=== PATIENT | male | born 1990 | race Caucasian/White ===

== ENCOUNTER 2016-07-30 07:26 | Emergency (ER) | payer MEDICAID ==
[2016-07-30] MEDS ORDERED: FAMOTIDINE 20 MG/2 ML VIAL IVP STA (08:01)
[2016-07-30] MEDS ORDERED: ACETAMINOPHEN 1,000 MG/100 ML 100 ML IV STA (08:01)
[2016-07-30] MEDS ORDERED: ONDANSETRON 4 MG/2 ML VIAL IVP STA (08:01)
[2016-07-30] MEDS ORDERED: SODIUM CHLORIDE 0.9% 1,000 ML IV ONE (08:02)
--- NOTE | 2016-07-30 08:04 | ED Physician Documentation ---
History of Present Illness - Stated complaint Stated Complaint: ABD PX/VOMITING/DIARRHEA - Chief complaint Chief Complaint: Abd Pain - Additonal information Additional information: hx from pt 25 y/o male hx PUD and crohns on sulfasalazine, bentyl and prilosec to ER with NVD (both blood tinged) and L abd pain X 2 days started after his son was sick with NVD no travel no bad food no recent ab Review of Systems Constitutional: denies: Fever, Chills Throat: denies: Sore throat Cardiac: denies: Chest pain / pressure Respiratory: denies: Dyspnea GI: reports: Abdominal Pain, Nausea, Vomiting, Diarrhea, Hematemesis, Bloody / black stool Endocrine: denies: Easy bruising / bleeding Immunocompromised: denies: Immunocompromised PD PAST MEDICAL HISTORY - Past Medical History GI: Ulcers, Crohn's disease Other Past Medical History: Crohn's Disease - Past Surgical History Past Surgical History: Yes General: Colonoscopy HEENT: Tonsil/Adenoidectomy - Present Medications Home Medications: Ambulatory Orders Medication Instructions Recorded Confirmed Omeprazole [PriLOSEC] 20 mg PO DAILY #14 capsule 01/16/16 07/30/16 Dicyclomine [Bentyl] 10 mg PO DAILY 07/30/16 07/30/16 Ondansetron Odt [Zofran] 4 mg TL Q6H PRN #10 tablet 07/30/16 Sucralfate 1 gm PO ACHS #120 tablet 07/30/16 raNITIdine [Zantac] 150 mg PO BID #60 tablet 07/30/16 sulfaSALAzine [Azulfidine] 500 mg PO DAILY 07/30/16 07/30/16 traMADol [Ultram] 50 mg PO DAILY 07/30/16 07/30/16 - Allergies Allergies/Adverse Reactions: Allergies Allergy/AdvReac Type Severity Reaction Status Date / Time diphenhydramine HCl * Allergy Unknown Verified 01/16/16 14:45 [From Neil] - Social History Does the pt smoke?: No Smoking Status: Never smoker Does the pt drink ETOH?: No Does the pt have substance abuse?: No PD ED PE NORMAL - Vitals Vital signs reviewed: Yes - General General: Alert and oriented X 3 - HEENT HEENT: PERRL - Neck Neck: Supple, no meningeal sign - Cardiac Cardiac: RRR - Respiratory Respiratory: No respiratory distress, Clear bilaterally - Abdomen Abdomen: Soft, Other (TTP entire left abd, rebound, vol guarding) - Derm Derm: Normal color - Neuro Neuro: Alert and oriented X 3 - Psych Psych: Normal mood Results - Vitals Vitals: Vital Signs - 24 hr 07/30/16 07:31 Temperature 36.5 C Heart Rate 81 Respiratory 18 Rate Blood Pressure 131/84 H O2 Saturation 97 Oxygen O2 Source Room air - Labs Labs: Laboratory Tests 07/30/16 07/30/16 07:52 07:52 WBC 4.7 L RBC 5.04 Hgb 15.5 Hct 44.7 MCV 88.7 MCH 30.7 MCHC 34.6 RDW 13.4 Plt Count 213 MPV 8.7 Neut # 2.7 Lymph # 1.2 L [place] # 0.5 Eos # 0.1 Baso # 0.0 Absolute Nucleated RBC 0.00 Nucleated RBCs 0.1 Sodium 137 Potassium 4.0 Chloride 101 Carbon Dioxide 27 Anion Gap 9.0 BUN 14 Creatinine 0.9 Estimated GFR (MDRD) 103 Glucose 105 H Calcium 8.9 Total Bilirubin 0.5 AST 21 ALT 25 Alkaline Phosphatase 88 Total Protein 7.6 Albumin 3.9 Globulin 3.7 Albumin/Globulin Ratio 1.1 Lipase 18 L - Rads (name of study) CT abd pelvis Radiology: See rad report (with contrast - neg - non specific borderline spleen size but no acute process) Departure - Departure Disposition: 01 Home, Self Care Clinical Impression: Vomiting Qualifiers: Vomiting type: unspecified Vomiting Intractability: non-intractable Nausea presence: with nausea Qualified Code(s): R11.2 - Nausea with vomiting, unspecified Diarrhea Qualifiers: Diarrhea type: unspecified type Qualified Code(s): R19.7 - Diarrhea, unspecified Hematemesis/vomiting blood Qualifiers: Nausea presence: with nausea Qualified Code(s): K92.0 - Hematemesis; R11.0 - Nausea Condition: Good Prescriptions: Sucralfate 1 gm PO ACHS #120 tablet raNITIdine [Zantac] 150 mg PO BID #60 tablet Ondansetron Odt [Zofran] 4 mg TL Q6H PRN #10 tablet PRN Reason: Nausea / Vomiting Comments: Your labs were fine - you have not lost a significant amount of blood The CT scan was fine too - no bowel inflammation or abscess or perforated ulcer You may have a stomach virus like your son and with your underlying gastritis and crohns got much worse and had some bleeding Given the reassuring work up i think it is safe for you to go home I have prescribed zantac and carafate in addition to your prilosec And also zofran to help with the vomiting so you can stay hydrated Follow up with your OPMD if not better in 2 days Return to the ER if worse Please follow up with your PMD about your blood pressure - it was elevated today Forms: Activity restrictions
[2016-07-30] MEDS ORDERED: ACETAMINOPHEN 1,000 MG/100 ML 100 ML IV ONE (08:06)
[2016-07-30] MEDS ORDERED: FAMOTIDINE 20 MG/2 ML VIAL ONE (08:07)
[2016-07-30] MEDS ORDERED: ONDANSETRON 4 MG/2 ML VIAL ONE (08:08)
[2016-07-30 08:11] LABS: BASOPHILS % (AUTO) 0.6 %; EOSINOPHILS # (AUTO) 0.1 10^3/uL (0.0-0.7); EOSINOPHILS % (AUTO) 2.9 %; HCT - HEMATOCRIT 44.7 % (42.0-52.0); HGB - HEMOGLOBIN 15.5 g/dL (14.0-18.0); LYMPHOCYTES # (AUTO) 1.2 10^3/uL (1.5-3.5); LYMPHOCYTES % (AUTO) 26.5 %; MEAN CORPUSCULAR HEMOGLOBIN 30.7 pg (27.0-31.0); MEAN CORPUSCULAR HGB CONC 34.6 g/dL (32.0-36.0); MEAN CORPUSCULAR VOLUME 88.7 fL (80.0-94.0); MEAN PLATELET VOLUME 8.7 fL (7.4-11.4); MONOCYTES # (AUTO) 0.5 10^3/uL (0.0-1.0); MONOCYTES % (AUTO) 11.4 %; NEUTROPHILS # (AUTO) 2.7 10^3/uL (1.5-6.6); NEUTROPHILS % (AUTO) 58.6 %; NUCLEATED RED BLOOD CELLS AUTO 0.1 /100WBC; RED BLOOD COUNT 5.04 10^6/uL (4.70-6.10); RED CELL DISTRIBUTION WIDTH 13.4 % (12.0-15.0); UNCORRECTED WHITE BLOOD COUNT 4.7 x10^3/uL; WHITE BLOOD COUNT 4.7 x10^3/uL (4.8-10.8)
[2016-07-30 08:18] LABS: ALBUMIN/GLOBULIN RATIO 1.1 (1.0-2.2); BILIRUBIN,TOTAL 0.5 mg/dL (0.2-1.0); CALCIUM 8.9 mg/dL (8.5-10.3); CREATININE 0.9 mg/dL (0.6-1.2); TOTAL PROTEIN 7.6 g/dL (6.7-8.2)
[2016-07-30] MEDS ORDERED: IOPAMIDOL-300 100 ML VIAL IVP ONE (09:00)
--- NOTE | 2016-07-30 09:49 | CT Preliminary Report ---
Exam: CT Abdomen/Pelvis W/ IMPRESSION: 1. Negative for renal stone, bowel obstruction or inflammatory changes. 2. Borderline to mild splenomegaly without neuropathy or cirrhosis, nonspecific finding. 3 No subsequent findings in this Abdomen and pelvis CT to account for patient's symptoms. [facility] SITE ID: [id number]
--- NOTE | 2016-07-30 09:51 | CT Report ---
EXAM: CT ABDOMEN AND PELVIS EXAM DATE: 07/30/2016 09:03 AM. CLINICAL HISTORY: Bloody NVD, left abdominal pain with rebound. COMPARISONS: None. TECHNIQUE: Routine helical CT imaging was performed through the abdomen and pelvis. IV contrast: 100 cc Isovue-300 e. Enteric contrast: No. Reconstructions: Coronal and sagittal. In accordance with CT protocol optimization, one or more of the following dose reduction techniques w ere utilized for this exam: automated exposure control, adjustment of mA and/or KV based on patient s ize, or use of iterative reconstructive technique. FINDINGS: Lung Bases: Unremarkable. Liver: No contour changes or masses. Gallbladder/Bile Ducts: Unremarkable. Spleen: 14.1 cm in longest dimension, borderline to mild enlarged; no mass or asya splenic abnormal d ensity. Pancreas: Normal. Adrenal Glands: Normal. Kidneys: No stone, masses or hydronephrosis. Peritoneal Cavity/Bowel: No free fluid, free air or adenopathy. No masses or acute inflammatory proc ess. The appendix is not well visualized and no mass or inflammatory change and final abdomen seen. Pelvic Organs: The bladder and visualized pelvic organs are within normal limits. Vasculature: No aneurysms or other significant abnormality. Bones: No significant abnormality. Other: No hernia identified. IMPRESSION: 1. Negative for renal stone, bowel obstruction or inflammatory changes. 2. Borderline to mild splenomegaly without neuropathy or cirrhosis, nonspecific finding. 3 No subsequent findings in this Abdomen and pelvis CT to account for patient's symptoms. [facility] Referring Provider Line: [phone] SITE ID: [id number]
[2016-07-30 10:05] VITALS: BP 105/71
== END 2016-07-30 10:15 | disposition home or self-care (01) ==
LOC: ED 07:26
DX: K92.0 Hematemesis (principal); R11.0 Nausea; R19.7 Diarrhea, unspecified; K50.90 Crohn's disease, unspecified, without complications; Z87.11 Personal history of peptic ulcer disease
CPT/HCPCS: 36415; 74177; 80053; 83690; 85025; 96365; 96375; 99283; 99284; J0131; Q9967

== ENCOUNTER 2016-09-25 18:42 | Emergency (ER) | payer MEDICAID ==
[2016-09-25 18:47] VITALS: BP 118/65
--- NOTE | 2016-09-25 19:44 | XRAY Preliminary Report ---
Exam: XR Hand 3 View RT IMPRESSION: 1. Old avulsion fracture base third proximal phalanx. 2. No acute bony abnormality. [facility] SITE ID: [id number]
--- NOTE | 2016-09-25 20:00 | XRAY Report ---
EXAM: RIGHT HAND RADIOGRAPHY EXAM DATE: 09/25/2016 07:22 p.m. CLINICAL HISTORY: Right hand smashed in door. Fourth metacarpal pain. COMPARISON: None. TECHNIQUE: 3 views. FINDINGS: Bones: Old 2 x 3 mm slightly displaced and ununited avulsion fracture at the lateral aspect base thir d proximal phalanx. Trabecular cortical patterns are otherwise intact. Joints: Normal. No subluxations. Soft Tissues: Moderate edema throughout the hand. IMPRESSION: 1. Old avulsion fracture at base of third proximal phalanx. 2. No acute bony abnormality. [facility] Referring Provider Line: [phone] SITE ID: [id number]
--- NOTE | 2016-09-25 20:42 | ED Physician Documentation ---
History of Present Illness - Stated complaint Stated Complaint: RT HAND INJ - Chief complaint Chief Complaint: Ext Problem - History obtained from History obtained from: Patient - Additonal information Additional information: This patient is a 25-year-old male who is right-hand dominant who presents with a complaint of right hand pain. He said he injured the right hand and a crush injury yesterday when he slammed in a car door. He complains of pain to the dorsum of the hand over Metacarpal area of the third finger.He denies any other injury. The pain is worse when he moves it. It is better with rest. He is right-hand dominant. Review of systems: For pertinent positive and negatives in the review of systems please see history of present illness. Otherwise all other systems have been reviewed and are negative. Dragon disclaimer: Parts of this medical record were created using voice recognition technology. Because of the inherent limitations of this system occasional same sounding word substitutions do occur and persist despite proofreading. Please read the document for context. Review of Systems Ten Systems: 10 systems reviewed and negative Constitutional: denies: Fever, Chills Eyes: denies: Loss of vision Nose: denies: Rhinorrhea / runny nose PD PAST MEDICAL HISTORY - Past Medical History Past Medical History: Yes GI: Ulcers, Crohn's disease - Past Surgical History Past Surgical History: Yes General: Colonoscopy HEENT: Tonsil/Adenoidectomy - Present Medications Home Medications: Ambulatory Orders Medication Instructions Recorded Confirmed Omeprazole [PriLOSEC] 20 mg PO DAILY #14 capsule 01/16/16 09/25/16 Dicyclomine [Bentyl] 10 mg PO DAILY 07/30/16 09/25/16 Ondansetron Odt [Zofran] 4 mg TL Q6H PRN #10 tablet 07/30/16 09/25/16 Sucralfate 1 gm PO ACHS #120 tablet 07/30/16 09/25/16 raNITIdine [Zantac] 150 mg PO BID #60 tablet 07/30/16 09/25/16 sulfaSALAzine [Azulfidine] 500 mg PO DAILY 07/30/16 09/25/16 traMADol [Ultram] 50 mg PO DAILY 07/30/16 09/25/16 - Allergies Allergies/Adverse Reactions: Allergies Allergy/AdvReac Type Severity Reaction Status Date / Time diphenhydramine HCl * Allergy Unknown Verified 09/25/16 18:56 [From Benadryl] - Social History Does the pt smoke?: Yes Smoking Status: Current every day smoker Does the pt drink ETOH?: No Does the pt have substance abuse?: Yes Substance Use and Type: Marijuana - Immunizations Immunizations are current?: Yes - POLST Patient has POLST: No PD ED PE NORMAL - Vitals Vital signs reviewed: Yes - General General: Alert and oriented X 3, No acute distress, Well developed/nourished - HEENT HEENT: Atraumatic, PERRL - Cardiac Cardiac: RRR - Respiratory Respiratory: No respiratory distress - Abdomen Abdomen: Normal bowel sounds - Extremities Extremities: Other (On examination he has mild tenderness over the. Metacarpophalangeal joint of the right hand.) Results - Vitals Vitals: Vital Signs - 24 hr 09/25/16 18:46 Temperature 37.0 C Heart Rate 80 Respiratory 18 Rate Blood Pressure 118/65 O2 Saturation 99 Oxygen O2 Source Room air PD MEDICAL DECISION MAKING - ED course ED course: Patient is a 25-year-old man who is right-hand dominant he slammed his car door on his hand yesterday and comes in with a complaint of pain on the dorsum of the right hand. He is mildly tender at the third MCP. Radiographically there is a small chip fracture seen at this area. He was placed in AlumaFoam splint and will be discharged home with recommendations of rest elevation and anti- inflammatories as needed. Disposition: To home Clinical impression: 1. Chip fracture base of proximal phalanx third finger right hand Departure - Departure Disposition: 01 Home, Self Care Clinical Impression: Fracture of phalanx of finger Qualifiers: Encounter type: initial encounter Finger: middle finger Fracture type: closed Phalanx: proximal Condition: Good Instructions: ED Fx Finger Closed Comments: You have a small chip fracture of the base of the first phalanx third finger. We will give a number to orthopedics for follow-up if you like. This will probably heal very nicely on its own without any intervention
== END 2016-09-25 20:45 | disposition home or self-care (01) ==
LOC: ED 18:42
DX: S62.612A Displaced fracture of proximal phalanx of right middle finger, initial encounter for closed fracture (principal); V48.3XXA Unspecified car occupant injured in noncollision transport accident in nontraffic accident, initial encounter
CPT/HCPCS: 29130; 99283

== ENCOUNTER 2017-01-06 12:19 | Emergency (ER) | payer MEDICAID ==
[2017-01-06 12:28] VITALS: BP 118/72
--- NOTE | 2017-01-06 13:13 | XRAY Preliminary Report ---
Exam: XR CHEST 2 VIEW PA/LAT IMPRESSION: Negative chest. [facility] SITE ID: [id number]
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
== END 2017-01-06 14:47 | disposition home or self-care (01) ==
LOC: ED 12:19
DX: S22.32XA Fracture of one rib, left side, initial encounter for closed fracture (principal); S20.212A Contusion of left front wall of thorax, initial encounter; V23.4XXA Motorcycle driver injured in collision with car, pick-up truck or van in traffic accident, initial encounter; Y92.488 Other paved roadways as the place of occurrence of the external cause; K50.90 Crohn's disease, unspecified, without complications; Z87.11 Personal history of peptic ulcer disease; F17.200 Nicotine dependence, unspecified, uncomplicated
CPT/HCPCS: 71020; 99283

== ENCOUNTER 2017-02-03 12:16 | Emergency (ER) | payer MEDICAID ==
--- NOTE | 2017-02-03 12:25 | ED Physician Documentation ---
PD HPI UPPER EXT INJURY - Stated complaint Stated Complaint: R THUMB LAC - History obtained from History obtained from: Patient - History of Present Illness Location: Right, Finger (thumb) Type of injury: Laceration (he was putting trampoline together and cut top of thumb on edge of metal.) Where injury occurred: Home Timing - onset: Today Timing - details: Abrupt onset Worsened by: Moving, Palpating, Other (it bled briskly initially and he put pressure on it after cleansing it. It flapped open and he did not know if it needed sutures.) Associated symptoms: No: Weakness, Numbness, Swelling Similar symptoms before: Has not had sx before Recently seen: Not recently seen Review of Systems Neurologic: denies: Focal weakness, Numbness, Near syncope PD PAST MEDICAL HISTORY - Past Medical History Respiratory: None GI: Ulcers, Crohn's disease - Past Surgical History Past Surgical History: Yes General: Colonoscopy HEENT: Tonsil/Adenoidectomy - Present Medications Home Medications: Ambulatory Orders Medication Instructions Recorded Confirmed No Known Home Medications [No 02/03/17 02/03/17 Known Home Medications] - Allergies Allergies/Adverse Reactions: Allergies Allergy/AdvReac Type Severity Reaction Status Date / Time diphenhydramine HCl * Allergy Unknown Verified 02/03/17 12:30 [From Benadryl] - Social History Does the pt smoke?: Yes Smoking Status: Current every day smoker Does the pt drink ETOH?: No Does the pt have substance abuse?: Yes - Immunizations Immunizations are current?: Yes - POLST Patient has POLST: No PD ED PE NORMAL - Vitals Vital signs reviewed: Yes - General General: Alert and oriented X 3, No acute distress, Well developed/nourished - Derm Derm: Normal color, Warm and dry - Extremities Extremities: Other (right thumb dorsum with flap laceration over the IP joint, which is in place right now without bleeding. Bending the thumb allows it to open must a little fit. Normal extension against resistance. Normal color and cap refill in tip. ) - Neuro Neuro: No motor deficit, No sensory deficit Results - Vitals Vitals: Oxygen O2 Source Room air PD MEDICAL DECISION MAKING - ED course Complexity details: considered differential (discussed closure with steristrips and glue versus sutures and the level of nicety needed for healing and he opts for steristrips and splint to protect the area. ), d/w patient Departure - Departure Disposition: 01 Home, Self Care Clinical Impression: Thumb laceration Qualifiers: Encounter type: initial encounter Damage to nail status: without damage Foreign body presence: without foreign body Laterality: right Qualified Code(s) : S61.011A - Laceration without foreign body of right thumb without damage to nail, initial encounter Condition: Stable Record reviewed to determine appropriate education?: Yes Instructions: ED Laceration Hand Comments: Keep the area clean and dry. Use a splint to protect the joint while its healing. Allow the tape and glue to remain in place until it falls off on its own after several days to week. Recheck if signs of infection develop. Tylenol or ibuprofen if needed for pains. Discharge Date/Time: 02/03/17 12:57
[2017-02-03 12:30] VITALS: BP 132/66
[2017-02-03] MEDS ORDERED: TETANUS/DIPHTHERIA/PERTUSSIS 0.5 ML SYRINGE IM ONE ×2 (12:41→12:48)
== END 2017-02-03 12:57 | disposition home or self-care (01) ==
LOC: ED 12:16
DX: S61.011A Laceration without foreign body of right thumb without damage to nail, initial encounter (principal); W26.8XXA Contact with other sharp object(s), not elsewhere classified, initial encounter; Y92.019 Unspecified place in single-family (private) house as the place of occurrence of the external cause; Z87.11 Personal history of peptic ulcer disease; K50.90 Crohn's disease, unspecified, without complications; F17.200 Nicotine dependence, unspecified, uncomplicated; Z23 Encounter for immunization
CPT/HCPCS: 90471; 99282; 99283

== ENCOUNTER 2018-05-10 18:06 | Emergency (ER) | payer OTHER, MEDICAID ==
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
[2018-05-10 20:20] VITALS: BP 104/45
== END 2018-05-10 20:20 | disposition home or self-care (01) ==
LOC: ED 18:06
DX: S16.1XXA Strain of muscle, fascia and tendon at neck level, initial encounter (principal); V43.52XA Car driver injured in collision with other type car in traffic accident, initial encounter; Y92.410 Unspecified street and highway as the place of occurrence of the external cause; F17.200 Nicotine dependence, unspecified, uncomplicated
CPT/HCPCS: 72125; 99282; 99283

== ENCOUNTER 2018-08-23 18:15 | Emergency (ER) | payer MEDICAID, OTHER ==
[2018-08-23 18:21] VITALS: BP 135/86
[2018-08-23 18:52] LABS: BASOPHILS % (AUTO) 0.5 %; EOSINOPHILS # (AUTO) 0.2 10^3/uL (0.0-0.7); EOSINOPHILS % (AUTO) 2.7 %; HGB - HEMOGLOBIN 16.7 g/dL (14.0-18.0); LYMPHOCYTES # (AUTO) 2.4 10^3/uL (1.5-3.5); LYMPHOCYTES % (AUTO) 35.3 %; MEAN CORPUSCULAR HEMOGLOBIN 31.4 pg (27.0-31.0); MEAN CORPUSCULAR HGB CONC 33.9 g/dL (32.0-36.0); MEAN CORPUSCULAR VOLUME 92.6 fL (80.0-94.0); MEAN PLATELET VOLUME 8.2 fL (7.4-11.4); MONOCYTES # (AUTO) 0.5 10^3/uL (0.0-1.0); MONOCYTES % (AUTO) 7.3 %; NEUTROPHILS # (AUTO) 3.7 10^3/uL (1.5-6.6); NEUTROPHILS % (AUTO) 54.2 %; PLT - PLATELET COUNT 278 10^3/uL (130-450); RED BLOOD COUNT 5.31 10^6/uL (4.70-6.10); RED CELL DISTRIBUTION WIDTH 14.3 % (12.0-15.0); WHITE BLOOD COUNT 6.8 x10^3/uL (4.8-10.8)
[2018-08-23 19:06] LABS: ALBUMIN 4.4 g/dL (3.2-5.5); ALBUMIN/GLOBULIN RATIO 1.3 (1.0-2.2); BILIRUBIN,TOTAL 0.6 mg/dL (0.2-1.0); CALCIUM 9.4 mg/dL (8.5-10.3); TOTAL PROTEIN 7.7 g/dL (6.7-8.2)
== END 2018-08-23 20:03 | disposition left against medical advice (07) ==
LOC: ED 18:15
DX: Z53.21 Procedure and treatment not carried out due to patient leaving prior to being seen by health care provider (principal)
CPT/HCPCS: 36415; 80053; 83690; 85025

== ENCOUNTER 2019-11-11 13:44 | Outpatient (CLI) | payer MEDICAID | END 2019-11-11 13:45 | disposition home or self-care (01) | LOC: COV 13:44 | PROVIDERS: ATTEND Family Medicine | DX: R50.9 Fever, unspecified (principal); R05 Cough; R06.02 Shortness of breath; R53.83 Other fatigue; R19.7 Diarrhea, unspecified; R09.81 Nasal congestion; R11.2 Nausea with vomiting, unspecified; Z20.828 Contact with and (suspected) exposure to other viral communicable diseases ==

== ENCOUNTER 2020-03-01 20:17 | Outpatient (CLI) | payer MEDICAID | END 2020-03-01 20:18 | disposition home or self-care (01) | LOC: COV 20:17 | PROVIDERS: ATTEND Family Medicine | DX: R50.9 Fever, unspecified (principal); Z20.828 Contact with and (suspected) exposure to other viral communicable diseases; R05 Cough; R53.83 Other fatigue; R09.89 Other specified symptoms and signs involving the circulatory and respiratory systems; R19.7 Diarrhea, unspecified; R11.2 Nausea with vomiting, unspecified; J02.9 Acute pharyngitis, unspecified ==

== ENCOUNTER 2022-04-29 17:22 | Emergency (ER) | payer MEDICAID ==
[2022-04-29 19:50] VITALS: BP 158/106
[2022-04-29 20:39] LABS: RAPID STREP SCREEN Negative (Negative)
[2022-04-29] MEDS ORDERED: CHERRY SYRUP 10 ML UDC PO ONE (21:43)
[2022-04-29] MEDS ORDERED: BENZONATATE 100 MG CAPSULE PO STA (21:43)
[2022-04-29] MEDS ORDERED: DEXAMETHASONE 10 MG/ML VIAL PO STA (21:43)
--- NOTE | 2022-04-29 21:50 | ED Physician Documentation ---
History of Present Illness - Stated complaint Stated Complaint: COUGH,SOA - Chief complaint Chief Complaint: Resp - Additonal information Additional information: Patient 31-year-old male presenting to the emergency department with cough, michael estion, sore throat, shortness of breath. Symptoms ongoing x2-3 days. Reports had a similar bout approximately 1 month ago. Endorses for tobacco dependence x10 years. Denies fever or body ache or known sick contact. Review of Systems Constitutional: denies: Fever, Myalgias, Fatigue Nose: reports: Congestion Throat: reports: Sore throat. denies: Oral lesions / sores Cardiac: denies: Chest pain / pressure, Palpitations Respiratory: reports: Dyspnea, Cough, Wheezing GI: denies: Nausea, Vomiting : denies: Dysuria PD PAST MEDICAL HISTORY - Past Medical History Respiratory: None GI: Ulcers, Crohn's disease - Past Surgical History Past Surgical History: Yes General: Colonoscopy HEENT: Tonsil/Adenoidectomy - Present Medications Home Medications: Ambulatory Orders Medication Instructions Recorded Confirmed Albuterol Sulf [Ventolin Hfa 1 - 2 puffs INH Q4HR PRN #1 each 04/29/22 Inhaler] Benzonatate [Tessalon] 200 mg PO TID PRN #30 cap 04/29/22 Oxymetazoline HCl [Afrin] 15 ml NS Q4HR PRN #1 each 04/29/22 Pseudoephedrine HCl [Sudafed] 30 mg PO Q6HR #12 tablet 04/29/22 - Allergies Allergies/Adverse Reactions: Allergies Allergy/AdvReac Type Severity Reaction Status Date / Time diphenhydramine HCl * Allergy Unknown Verified 04/29/22 17:39 [From Benadryl] - Social History Does the pt smoke?: Yes Smoking Status: Current every day smoker Does the pt drink ETOH?: No Does the pt have substance abuse?: Yes - Immunizations Immunizations are current?: Yes Immunizations: TDAP >10years/unknown - POLST Patient has POLST: No PD ED PE NORMAL - Vitals Vital signs reviewed: Yes - General General: Alert and oriented X 3, No acute distress, Well developed/nourished - HEENT HEENT: Atraumatic, PERRL, EOMI, Ears normal, Moist mucous membranes - Neck Neck: Supple, no meningeal sign, No bony TTP, No adenopathy, Thyroid normal, No JVD - Cardiac Cardiac: RRR, No murmur, No gallop, No rub - Respiratory Respiratory: No respiratory distress, Clear bilaterally - Abdomen Abdomen: Normal bowel sounds, Non tender - Rectal Rectal: Deferred - Back Back: No CVA TTP - Derm Derm: Normal color - Extremities Extremities: No deformity - Neuro Neuro: Alert and oriented X 3, 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 This is in the setting of longstanding tobacco dependence. Past medical significant for Crohn's disease. Afebrile, hemodynamic stable on arrival to the emergency department. Initial differential diagnosis included but not limited to viral infection, bronchitis, asthma, ACS, pneumothorax, PE. Patient is a low risk Wells and PERC negative. Chest x-ray does not have any consolidations or pneumothorax per my interpretation. Physical exam demonstrated clear aeration with possible faint wheeze in the lower lung lobes. HEENT exam benign. Given dose of Decadron and Tessalon Perles in the emergency department. Offered COVID and viral screening which was declined. Discussed the importance of abstinence from tobacco products in the future. Will discharge at this time for follow-up with primary care. Clear return precautions given. Departure - Departure Disposition: 01 Home, Self Care Clinical Impression: Bronchitis, Tobacco dependence, Elevated blood pressure reading Upper respiratory tract infection Qualifiers: URI type: unspecified URI Qualified Code(s): J06.9 - Acute upper respiratory infection, unspecified Instructions: ED Bronchitis Asthmatic Prescriptions: Oxymetazoline HCl [Afrin] 15 ml NS Q4HR PRN #1 each PRN Reason: Cold Symptons Albuterol Sulf [Ventolin Hfa Inhaler] 1 - 2 puffs INH Q4HR PRN #1 each PRN Reason: Shortness Of Air/Wheezing Pseudoephedrine HCl [Sudafed] 30 mg PO Q6HR #12 tablet Benzonatate [Tessalon] 200 mg PO TID PRN #30 cap PRN Reason: Cough Comments: Thank you for allowing us to care for you today at [facility]. Your x-rays taken today did not show any pneumonia or other consolidation. As we discussed I would like you to work towards quitting smoking as I believe that this is directly contributing to your recurrent symptoms of persistent upper respiratory tract infection. I have some simple treatments to [facility] for your use including an albuterol inhaler. Please use these medications as directed. Please make a follow-up appoint with your primary care doctor for medical recheck. Your blood pressure was also mildly elevated here in the emergency department and you would benefit from having this rechecked as well. If it anytime you have new or worsening symptoms please not hesitate to return.
--- NOTE | 2022-04-29 22:36 | XRAY Report ---
PROCEDURE: Chest 1 View X-Ray INDICATIONS: chest pain TECHNIQUE: One view of the chest was acquired. COMPARISON: None. FINDINGS: Surgical changes and devices: None. Lungs and pleura: No pleural effusions or pneumothorax. Lungs are clear. Mediastinum: Mediastinal contours appear normal. Heart size is normal. Bones and chest wall: No suspicious bony lesions. Overlying soft tissues appear unremarkable. IMPRESSION: No acute cardiopulmonary disease. Reviewed by: Ibis Magdaleno MD on 04/29/2022 10:35 PM PST Approved by: Ibis Magdaleno MD on 04/29/2022 10:35 PM PST Station ID: [id number]
== END 2022-04-29 22:03 | disposition home or self-care (01) ==
LOC: ED 17:22
DX: J06.9 Acute upper respiratory infection, unspecified (principal); J40 Bronchitis, not specified as acute or chronic; F17.200 Nicotine dependence, unspecified, uncomplicated
CPT/HCPCS: 71045; 87070; 87430; 99283; 99284; A9270

== ENCOUNTER 2022-05-14 21:52 | Emergency (ER) | payer MEDICAID ==
[2022-05-14 22:04] VITALS: BP 131/69
[2022-05-14] MEDS ORDERED: KETOROLAC 30 MG/ML VIAL IM STA (22:26)
--- NOTE | 2022-05-14 23:13 | XRAY Report ---
PROCEDURE: Chest 2 View X-Ray INDICATIONS: R rib pain, cough, bronchitis TECHNIQUE: 2 views of the chest were acquired. COMPARISON: None. FINDINGS: Surgical changes and devices: None. Lungs and pleura: No pleural effusions or pneumothorax. Lungs are clear. Mediastinum: Mediastinal contours are normal. Heart size is normal. Bones and chest wall: No suspicious bony abnormalities. Soft tissues appear unremarkable. IMPRESSION: 1. No acute cardiopulmonary disease. Reviewed by: Sheng Cutler MD on 05/14/2022 11:12 PM [facility] Approved by: Sheng Cutler MD on 05/14/2022 11:12 PM [facility] Station ID: [id number]
[2022-05-14] MEDS ORDERED: guaiFENesin/CODEINE 5 ML UDC PO STA (23:28)
--- NOTE | 2022-05-14 23:30 | ED Physician Documentation ---
History of Present Illness - Stated complaint Stated Complaint: RT LOWER BACK PX - Chief complaint Chief Complaint: Back Pain - History obtained from History obtained from: Patient - Additonal information Additional information: 31-year-old man with history of bronchitis/pneumonia 2 weeks ago with lingering cough presents with right lower rib cage and back pain that has been ongoing and worsening over the past couple of days.Denies fever, shortness of breath. He felt a popping after coughing today and decided to come to the emergency department. PD PAST MEDICAL HISTORY - Past Medical History Past Medical History: Yes Respiratory: Other GI: Ulcers, Crohn's disease Other Past Medical History: Bronchitis - Past Surgical History Past Surgical History: Yes General: Colonoscopy HEENT: Tonsil/Adenoidectomy - Present Medications Home Medications: Ambulatory Orders Medication Instructions Recorded Confirmed Albuterol Sulf [Ventolin Hfa 1 - 2 puffs INH Q4HR PRN #1 each 04/29/22 05/14/22 Inhaler] Benzonatate [Tessalon] 200 mg PO TID PRN #30 cap 04/29/22 05/14/22 Oxymetazoline HCl [Afrin] 15 ml NS Q4HR PRN #1 each 04/29/22 05/14/22 Pseudoephedrine HCl [Sudafed] 30 mg PO Q6HR #12 tablet 04/29/22 05/14/22 Codeine Phosphate/Guaifenesin 5 ml PO Q6H PRN #100 ml 05/14/22 [Codeine-Guaifen 10-100 mg/5 ml] Omeprazole Magnesium 20 mg PO QDBREAKFAST 05/14/22 05/14/22 - Allergies Allergies/Adverse Reactions: Allergies Allergy/AdvReac Type Severity Reaction Status Date / Time diphenhydramine HCl * Allergy Unknown Verified 05/14/22 22:05 [From Benadryl] - Social History Does the pt smoke?: Yes Smoking Status: Current every day smoker Does the pt drink ETOH?: Yes Does the pt have substance abuse?: Yes Substance Use and Type: Marijuana - Immunizations Immunizations are current?: Yes Immunizations: TDAP >10years/unknown - POLST Patient has POLST: No PD ED PE NORMAL - Vitals Vital signs reviewed: Yes - General General: Alert and oriented X 3, No acute distress, Well developed/nourished - HEENT HEENT: Atraumatic, PERRL, EOMI - Cardiac Cardiac: RRR - Respiratory Respiratory: No respiratory distress, Clear bilaterally - Derm Derm: Normal color, Warm and dry Results - Vitals Vitals: Vital Signs - 24 hr 05/14/22 22:01 Temperature 36.9 C Heart Rate 102 H Respiratory 19 Rate Blood Pressure 131/69 H O2 Saturation 98 Oxygen O2 Source Room air PD Medical Decision Making - ED course ED course: 31-year-old man presented with right-sided rib pain from persistent cough over the past couple of weeks. Chest x-ray unremarkable. Prescription sent for extra strength cough suppressant to pharmacy. Return precautions given. Follow-up with primary care provider. Departure - Departure Disposition: Home, Self Care Clinical Impression: Cough, Rib pain Condition: Stable Instructions: ED Strain Chest Wall Prescriptions: Codeine Phosphate/Guaifenesin [Codeine-Guaifen 10-100 mg/5 ml] 5 ml PO Q6H PRN #100 ml PRN Reason: Cough Comments: You were seen in the emergency department for cough and rib pain. Please follow-up with your primary care provider and return to the emergency department for new or worsening symptoms or other concerns. A prescription was sent for extra strength cough suppressant to [facility] [facility] electronically.
== END 2022-05-14 23:38 | disposition home or self-care (01) ==
LOC: ED 21:52
DX: R05.9 Cough, unspecified (principal); R07.81 Pleurodynia; K50.90 Crohn's disease, unspecified, without complications; F17.200 Nicotine dependence, unspecified, uncomplicated
CPT/HCPCS: 71046; 99283; A9270

== ENCOUNTER 2022-11-15 14:03 | Emergency (ER) | payer SELFPAY ==
[2022-11-15 15:26] LABS: B. PARAPERTUSSIS- RESP PCR PAN NOT DETECTED; B. PERTUSSIS- RESP PCR PANEL NOT DETECTED; C. PNEUMONIAE- RESP PCR PANEL NOT DETECTED; CORONAVIRUS 229E-RESP PCR NOT DETECTED; CORONAVIRUS HKU1-RESP PCR NOT DETECTED; CORONAVIRUS NL63-RESP PCR NOT DETECTED; CORONAVIRUS OC43-RESP PCR NOT DETECTED; HUMAN METAPNEUMOVIRUS NOT DETECTED; INFLUENZA A- RESP PCR PANEL NOT DETECTED; INFLUENZA B - RESP PCR PANEL NOT DETECTED; M. PNEUMONIAE- RESP PCR PANEL NOT DETECTED; PARAINFLUENZA VIRUS 1 NOT DETECTED; PARAINFLUENZA VIRUS 2 NOT DETECTED; PARAINFLUENZA VIRUS 3 NOT DETECTED; PARAINFLUENZA VIRUS 4 NOT DETECTED; RHINOVIRUS/ENTEROVIRUS NOT DETECTED; RSV- RESP PCR PANEL NOT DETECTED; SARS-CoV-2 -RESP PCR PANEL NOT DETECTED
--- NOTE | 2022-11-15 15:51 | ED Physician Documentation ---
History of Present Illness - Stated complaint Stated Complaint: FEVER,SOA,CHEST PX,LETHARGIC - Chief complaint Chief Complaint: General - Additonal information Additional information: 32-year-old male presents the emergency department for evaluation of generalized fatigue fevers and diarrhea. States symptoms have been present for about 3 days. He just feels like he wants to sleep. Does have a history of Crohn's but not currently on any active treatment with the exception of omeprazole. Nonbloody diarrhea. No nausea or vomiting. No cough. He states that he feels like he did when he got the first COVID vaccination. He wants testing today to ensure he does not have COVID because he works in [employer]. Review of Systems Constitutional: reports: Fever, Myalgias, Fatigue Eyes: reports: Reviewed and negative Throat: reports: Reviewed and negative Cardiac: reports: Reviewed and negative Respiratory: reports: Reviewed and negative GI: reports: Diarrhea. denies: Bloody / black stool : reports: Reviewed and negative Skin: reports: Reviewed and negative Musculoskeletal: reports: Reviewed and negative PD PAST MEDICAL HISTORY - Past Medical History Respiratory: Other GI: Ulcers, Crohn's disease - Past Surgical History Past Surgical History: Yes General: Colonoscopy HEENT: Tonsil/Adenoidectomy - Present Medications Home Medications: Ambulatory Orders Medication Instructions Recorded Confirmed Albuterol Sulf [Ventolin Hfa 1 - 2 puffs INH Q4HR PRN #1 each 04/29/22 05/14/22 Inhaler] Benzonatate [Tessalon] 200 mg PO TID PRN #30 cap 04/29/22 05/14/22 Oxymetazoline HCl [Afrin] 15 ml NS Q4HR PRN #1 each 04/29/22 05/14/22 Pseudoephedrine HCl [Sudafed] 30 mg PO Q6HR #12 tablet 04/29/22 05/14/22 Codeine Phosphate/Guaifenesin 5 ml PO Q6H PRN #100 ml 05/14/22 [Codeine-Guaifen 10-100 mg/5 ml] Omeprazole Magnesium 20 mg PO QDBREAKFAST 05/14/22 05/14/22 - Allergies Allergies/Adverse Reactions: Allergies Allergy/AdvReac Type Severity Reaction Status Date / Time diphenhydramine HCl * Allergy Unknown Verified 11/15/22 14:28 [From Benadryl] - Social History Does the pt smoke?: Yes Smoking Status: Current every day smoker Does the pt drink ETOH?: Yes Does the pt have substance abuse?: Yes - Immunizations Immunizations are current?: Yes Immunizations: TDAP >10years/unknown - POLST Patient has POLST: No PD ED PE NORMAL - General General: Alert and oriented X 3, No acute distress - Cardiac Cardiac: RRR, No murmur - Respiratory Respiratory: No respiratory distress, Clear bilaterally - Abdomen Abdomen: Normal bowel sounds, Soft, Non tender - Derm Derm: Normal color, Warm and dry, No rash - Neuro Neuro: Alert and oriented X 3 Eye Opening: Spontaneous Motor: Obeys Commands Verbal: Oriented GCS Score: 15 Results - Vitals Vitals: Vital Signs - 24 hr 11/15/22 14:25 Temperature 36.7 C Heart Rate 104 H Respiratory 20 Rate Blood Pressure 151/111 H O2 Saturation 98 Oxygen O2 Source Room air - Labs Labs: Laboratory Tests 11/15/22 14:30 Nasal Adenovirus (PCR) NOT DETECTED Nasal B. parapertussis DNA (PCR) NOT DETECTED Nasal Coronavir 229E PCR NOT DETECTED Nasal Coronavir HKU1 PCR NOT DETECTED Nasal Coronavir NL63 PCR NOT DETECTED Nasal Coronavir OC43 PCR NOT DETECTED Nasal Enterovir/Rhinovir PCR NOT DETECTED Nasal Influenza B PCR NOT DETECTED Nasal Influenza A PCR NOT DETECTED Nasal Parainfluen 1 PCR NOT DETECTED Nasal Parainfluen 2 PCR NOT DETECTED Nasal Parainfluen 3 PCR NOT DETECTED Nasal Parainfluen 4 PCR NOT DETECTED Nasal RSV (PCR) NOT DETECTED Nasal B.pertussis DNA PCR NOT DETECTED Nasal C.pneumoniae (PCR) NOT DETECTED Puneet Human Metapneumo PCR NOT DETECTED Nasal M.pneumoniae (PCR) NOT DETECTED Nasal SARS-CoV-2 (PCR) NOT DETECTED PD Medical Decision Making - ED course Complexity details: reviewed results, re-evaluated patient, considered differential, d/w patient ED course: 32-year-old male who has a history of Crohn's essentially untreated at this time presents emergency department for evaluation of 3 days fevers, fatigue and myalgias. States that he just wants to sleep. He is mostly concerned he could have a viral illness such as COVID. On exam he is alert and well-appearing. Unremarkable cardiopulmonary auscultation. No abdominal tenderness was elicited. Respiratory PCR panel was negative. I did discuss with patient the possibility of laboratory testing to include CBC, urinalysis and chest x-ray for evaluation of fever given negative viral testing but he stated that he felt comfortable knowing he did not have COVID. As such he is discharged home. Advised to return to the ER if the symptoms markedly worsen or fevers do not resolve after 1 week. Departure - Departure Disposition: Home, Self Care Clinical Impression: Febrile illness, acute Condition: Stable Record reviewed to determine appropriate education?: Yes Instructions: ED Fever Unconf Cause Comments: You are seen today in the emergency department because for the last several days you have been having fevers, fatigue and body aches. The respiratory viral testing today is negative. However I do still suspect you likely have a viral illness causing the diarrhea and fatigue. Most often these will resolve between 5 and 7 days. I recommend you continue to take Tylenol or ibuprofen at home. Stay well-hydrated and allow yourself plenty of rest. If you find that you are having worsening symptoms, the fevers do not resolve after 1 week then you should return to the ER for repeat evaluation.
[2022-11-15 16:09] VITALS: BP 140/93; O2SAT 100
== END 2022-11-15 16:06 | disposition home or self-care (01) ==
LOC: ED 14:03
DX: R50.9 Fever, unspecified (principal); F17.200 Nicotine dependence, unspecified, uncomplicated; Z20.822 Contact with and (suspected) exposure to COVID-19
CPT/HCPCS: 87633; 99283

== ENCOUNTER 2023-07-22 23:23 | Inpatient (IN) | payer MEDICAID ==
--- NOTE | 2023-07-22 23:51 | ED Physician Documentation ---
PD HPI ABD PAIN - Stated complaint Stated Complaint: EPIGASTRIC PX - Chief complaint Chief Complaint: Abd Pain - History obtained from History obtained from: Patient - Additional information Additional information: HPI from patient. Patient complains of upper abdominal pain, primarily epigastric, which radiates straight through to his back. Pain began 2 nights ago, has been constant and steadily worsening in severity. He has had nausea and vomiting with this pain. He is taken ibuprofen without adequate relief. He has had chills/sweats but has not taken his temperature at home; he says he does not think he is been having fevers. Patient had similar symptoms last November, was evaluated in this emergency department and found to have pancreatitis on workup. He was admitted to [facility] for this and had a 9-day stay, with the visit complicated/prolonged due to development of severe delirium tremens during his inpatient stay. Patient says that the symptoms (pain in particular) is worse tonight than it was when he was admitted last November. The cause of his pancreatitis at that time was attributed to alcoholism. The patient tells me he has abstained from drinking until 2 or 3 days ago, when he resumed drinking due to the of his father. Review of Systems Constitutional: reports: Chills, Sweats Cardiac: reports: Reviewed and negative Respiratory: reports: Reviewed and negative GI: reports: Abdominal Pain, Nausea, Vomiting. denies: Constipation, Diarrhea, Hematemesis, Bloody / black stool : denies: Dysuria, Frequency PD PAST MEDICAL HISTORY - Past Medical History Past Medical History: Yes Cardiovascular: None Respiratory: Other Neuro: None Endocrine/Autoimmune: None GI: Ulcers, Crohn's disease : None HEENT: None Psych: None Musculoskeletal: None - Past Surgical History Past Surgical History: Yes General: Colonoscopy HEENT: Tonsil/Adenoidectomy - Present Medications Home Medications: Ambulatory Orders Medication Instructions Recorded Confirmed Magnesium Oxide [Mag Ox] 400 mg PO DAILYWM 14 Days #14 tab 12/15/22 Omeprazole Magnesium 20 mg PO QDBREAKFAST 30 Days #30 12/15/22 tab Thiamine [Vitamin B-1] 100 mg PO DAILY 30 Days #30 tab 12/15/22 amLODIPine [Norvasc] 5 mg PO DAILY 30 Days #30 tab 12/15/22 diazePAM [Valium] 10 mg PO QDDINNER PRN #6 tab 10/01/23 - Allergies Allergies/Adverse Reactions: Allergies Allergy/AdvReac Type Severity Reaction Status Date / Time diphenhydramine HCl * Allergy Unknown Verified 07/22/23 23:29 [From Benadryl] - Social History Does the pt smoke?: Yes Smoking Status: Current every day smoker Does the pt drink ETOH?: Yes Does the pt have substance abuse?: Yes - Immunizations Immunizations are current?: Yes Immunizations: TDAP >10years/unknown - POLST Patient has POLST: No POLST Status: Full Code PD ED PE NORMAL - Vitals Vital signs reviewed: Yes - General General: Alert and oriented X 3, Well developed/nourished, Other - Cardiac Cardiac: RRR, No murmur - Respiratory Respiratory: No respiratory distress, Clear bilaterally - Abdomen Abdomen: Soft, Non distended PD ED PE EXPANDED - Abdomen Abdomen: Normal Bowel sounds, Tender to palpation (across upper abdomen but markedly more pronounced in epigastrium than RUQ/LUQ. nontender across lower a bdomen) Results - Vitals Vitals: Vital Signs - 24 hr 07/22/23 07/23/23 07/23/23 23:30 00:16 05:01 Temperature 36.5 C Heart Rate 110 H 84 94 Respiratory 18 18 15 Rate Blood Pressure 150/100 H 157/94 H O2 Saturation 100 100 99 07/23/23 06:40 Temperature Heart Rate 94 Respiratory 20 Rate Blood Pressure 147/82 H O2 Saturation 96 Oxygen O2 Source Room air - EKG (time done) No standard instances EKG releavant findings:: EKG personally interpreted by author of this note. Relevant findings are: Rate: Rate (enter#) (85) Rhythm: NSR [place]: Normal Intervals: Normal [place] QRS: Normal Ischemia: Normal ST segments - Labs Labs: Laboratory Tests 07/22/23 07/22/23 23:40 23:40 WBC 14.9 H RBC 5.55 Hgb 17.8 Hct 50.3 MCV 90.6 MCH 32.1 H MCHC 35.4 RDW 12.4 Plt Count 289 MPV 9.6 Neut # (Auto) 12.8 H Lymph # (Auto) 1.2 L Jerome # (Auto) 0.8 Eos # (Auto) 0.1 Baso # (Auto) 0.0 Absolute Nucleated RBC 0.00 Nucleated RBC % 0.0 Sodium 132 L Potassium 3.9 Chloride 95 L Carbon Dioxide 21 Anion Gap 16.0 H BUN 20 Creatinine 1.6 H Estimated GFR (MDRD) 50 L Glucose 154 H Calcium 10.8 H Total Bilirubin 1.0 AST 34 ALT 32 Alkaline Phosphatase 142 H Total Protein 8.9 Albumin 5.2 Globulin 3.7 Albumin/Globulin Ratio 1.4 Lipase 536 H - Rads (name of study) CT A/P with IV contrast Relevant Findings:: Prelim report reviewed, See rad report PD Medical Decision Making - ED course Complexity details: reviewed old records, reviewed results, re-evaluated patient, considered differential, d/w patient ED course: HPI/PE are S/O pancreatitis due to recent binge drinking. Leukocytosis (WBC 14.9). Mild hyponatremia (132). Normal BUN (20) but elevated creatinine (1.6); the elevated creatinine was not noted during his inpatient stay last fall. Mild hypercalcemia (10.8). Lipase notably elevated (534). Normal liver function tests except for the alkaline phosphatase (142). CT A/P with IV contrast reveals peripancreatic inflammation, also supporting diagnosis of uncomplicated pancreatitis (no evidence of pseudocyst, abscess, necrosis). Patient required repeated doses of Dilaudid which did not result in adequate nor lasting analgesia. At one point, he is given a dose of fentanyl, as well; he reports this was even less effective than Dilaudid and thus he was subsequently given repeated doses of dilaudid on PRN basis. He was also given 4mg IV zofran x 2 doses and then phenergan 25 mg IV; this did result in intermittent control of his n/v. Given ongoing need for IV dilaudid for pain control with testing supporting diagnosis of acute pancreatitis, plan is to admit to [facility] when bed is available; there were no beds at [facility] throughout my shift and thus care of patient is turned over to oncoming ED physician (Dr. Nathan). Departure - Departure Disposition: 66 [facility] DC/Xfer Clinical Impression: Pancreatitis Qualifiers: Chronicity: acute Pancreatitis type: alcohol induced Acute pancreatitis complication: no infection or necrosis Qualified Code(s): K85.20 - Alcohol induced acute pancreatitis without necrosis or infection Forms: PCP List
[2023-07-22 23:57] LABS: BASOPHILS % (AUTO) 0.3 %; EOSINOPHILS # (AUTO) 0.1 10^3/uL (0.0-0.7); EOSINOPHILS % (AUTO) 0.3 %; HCT - HEMATOCRIT 50.3 % (42.0-52.0); HGB - HEMOGLOBIN 17.8 g/dL (14.0-18.0); LYMPHOCYTES # (AUTO) 1.2 10^3/uL (1.5-3.5); MEAN CORPUSCULAR HEMOGLOBIN 32.1 pg (27.0-31.0); MEAN CORPUSCULAR HGB CONC 35.4 g/dL (32.0-36.0); MEAN CORPUSCULAR VOLUME 90.6 fL (80.0-94.0); MEAN PLATELET VOLUME 9.6 fL (7.4-11.4); MONOCYTES # (AUTO) 0.8 10^3/uL (0.0-1.0); MONOCYTES % (AUTO) 5.4 %; NEUTROPHILS # (AUTO) 12.8 10^3/uL (1.5-6.6); NEUTROPHILS % (AUTO) 85.7 %; PLT - PLATELET COUNT 289 10^3/uL (130-450); RED BLOOD COUNT 5.55 10^6/uL (4.70-6.10); RED CELL DISTRIBUTION WIDTH 12.4 % (12.0-15.0); WHITE BLOOD COUNT 14.9 x10^3/uL (4.8-10.8)
[2023-07-23] MEDS ORDERED: ONDANSETRON 4 MG/2 ML VIAL ONE (00:02)
[2023-07-23] MEDS: HYDROmorphone 1 MG/ML CARPUJECT IVP STA ×6 (00:03→12:39)
[2023-07-23] MEDS: SODIUM CHLORIDE 0.9% 1,000 ML IV STA ×3 (00:03→10:22)
[2023-07-23 00:16] LABS: ALBUMIN 5.2 g/dL (3.2-5.5); ALBUMIN/GLOBULIN RATIO 1.4 (1.0-2.2); CALCIUM 10.8 mg/dL (8.5-10.3); CREATININE 1.6 mg/dL (0.6-1.3); POTASSIUM 3.9 mmol/L (3.5-4.5); TOTAL PROTEIN 8.9 g/dL (6.4-8.9)
[2023-07-23] MEDS ORDERED: iohexoL-300 100 ML VIAL ONE (00:22)
[2023-07-23] MEDS: ONDANSETRON 4 MG/2 ML VIAL IVP STA ×2 (00:33)
[2023-07-23] MEDS: iohexoL-300 100 ML VIAL IVP ONE (00:50)
--- NOTE | 2023-07-23 00:59 | CT Report ---
PROCEDURE: Abdomen/Pelvis W INDICATIONS: abdominal pain, elevated lipase, h/o pancreatitis CONTRAST: Omni 300, 100mls TECHNIQUE: After the administration of intravenous contrast, a CT scan of the abdomen and pelvis was performed. Images were recorded and evaluated at appropriate window settings. Reformats: coronal and sagittal. F or radiation dose reduction, the following was used: automated exposure control, adjustment of mA and /or kV according to patient size. COMPARISON: 12/07/2022 FINDINGS: Image quality: Diagnostic Lower chest: Lung bases appear unremarkable. Normal heart size Liver: Possible hepatic steatosis. Gallbladder and biliary system: Unremarkable, nondilated biliary system Pancreas: Moderate peripancreatic inflammatory changes. No significant area of decreased enhancement. No drainable fluid collection Spleen: Spleen measures 13 cm, at the upper limit of normal Adrenals: No discrete nodules Kidneys: No solid mass or hydronephrosis Vessels and lymph nodes: The main portal vein appears patent. No abdominal aortic aneurysm or patholo gic lymph nodes by size criteria Bowel and peritoneum: No evidence of small bowel obstruction. No pathologic ascites or abscess. The a ppendix is nondilated. Body wall: Unremarkable Pelvis: Bladder is unremarkable. Prostate is unremarkable on this limited CT evaluation Bones: No acute or suspicious osseous findings IMPRESSION: Moderate findings of acute interstitial pancreatitis. No area of decreased enhancement or drainable f luid collection. Possible hepatic steatosis. Other findings as above Reviewed by: Ld Driver MD on 07/23/2023 12:57 AM PDT Approved by: Ld Driver MD on 07/23/2023 12:57 AM PDT Station ID: [id number]
[2023-07-23] MEDS: fentaNYL 100 MCG/2 ML VIAL IVP STA (01:56)
[2023-07-23] MEDS ORDERED: PROMETHAZINE 25 MG/1 ML VIAL ONE (04:38)
[2023-07-23] MEDS: PROMETHAZINE INJ 25 MG in SODIUM CHLORIDE 0.9% 50 ML IV STA (04:42)
[2023-07-23] MEDS: ONDANSETRON 4 MG/2 ML VIAL IVP PRN (07:35)
[2023-07-23] MEDS: LORazepam 2 MG/ML VIAL IVP STA (07:45)
[2023-07-23] MEDS: HYDROmorphone 1 MG/ML CARPUJECT IVP PRN (07:45)
--- NOTE | 2023-07-23 07:57 | ED Physician Documentation ---
ED Addendum - Addendum Addendum: 07/23/23 Patient care assumed at shift change. Patient is boarding awaiting admission for acute pancreatitis. Patient states that he has been on a deras for the last 2 to 3 days as his father recently . As needed pain and nausea medications have been ordered. 1045 - Admission bed should be available early this afternoon and hospitalist will see the patient for admission. Departure - Departure Disposition: [facility] DC/Xfer Clinical Impression: Pancreatitis Qualifiers: Chronicity: acute Pancreatitis type: alcohol induced Acute pancreatitis complication: no infection or necrosis Qualified Code(s): K85.20 - Alcohol induced acute pancreatitis without necrosis or infection Condition: Good Discharge Date/Time: 07/23/23 14:19
[2023-07-23] MEDS ORDERED: SODIUM CHLORIDE FLUSH 0.9% 10 ML SYRINGE IVP PRN (12:58)
--- NOTE | 2023-07-23 13:49 | HISTORY & PHYSICAL EXAMINATION ---
Chief Complaint - Chief Complaint Chief Complaint: Abdominal pain History of Present Illness - Admitted From Admitted From:: Emergency room - History Obtained From Records Reviewed: Yes History obtained from: Patient and from emergency room physician Dr. Song - History of Present Illness HPI Comment/Other: Andrey Fiore is a 32-year-old man who presented to the emergency room with a chief complaint of abdominal pain. He reports the pain is primarily epigastric and radiates to his back. He reports he has had acute pancreatitis in the past and has been hospitalized. He reports he had a 9-day stay. He states he has abstained from alcohol since that time, however, his father recently and he began to drink once again. After drinking for several days he developed abdominal pain. Workup in the emergency room revealed a lipase of 536. CT scan of the abdomen pelvis performed on July 23, 2023 revealed moderate peripancreatic inflammatory changes consistent with acute pancreatitis. History - Past Medical History Cardiovascular: reports: None Respiratory: reports: Other Neuro: reports: None Endocrine/Autoimmune: reports: None GI: reports: Ulcers, Crohn's disease : reports: None HEENT: reports: None Psych: reports: None Musculoskeletal: reports: None MRSA Hx?: No - Past Surgical History General: reports: Colonoscopy HEENT: reports: Tonsil/Adenoidectomy - Family & Social History Family History Comment/Other: Dad is 58 and has ulcerative colitis and injuries from being in the . Mom is 56 and has fibromyalgia. He has 3 sisters and a brother. 1 sister has had an oophorectomy for ovarian cyst but there is no high blood pressure, diabetes, cancer, heart attack, stroke, mental illness or alcoholism. 2 children are healthy Living Situation: With spouse/s.o. Social History Notes: . Lives in his own home with his . They have 2 children. He uses marijuana but denies cocaine, heroin, LSD, speed. Alcohol use is 3 times a week sometimes 4 times a week. When he drinks it is 3-4 drinks. Each drink has at least 3 shots of rum in it. Started smoking in high school. Smokes half a pack per day. Wroks in construction, owns the business - Substance History Use: Uses substance without health or social issues: Alcohol - POLST Patient has POLST: No POLST Status: Full Code Meds/Allgy - Home Medications Home Medications: Ambulatory Orders Medication Instructions Recorded Confirmed Omeprazole Magnesium 20 mg PO QDBREAKFAST 30 Days #30 12/15/22 07/23/23 tab Nicotine 14 mg Patch [Nicoderm] 1 each TOP Q24H 14 Days #14 patch 07/25/23 Nicotine 21 mg Patch [Nicoderm] 1 patch TOP DAILY #30 patch 07/25/23 Nicotine 7 mg Patch [Nicoderm] 1 each TOP Q24H 14 Days #14 patch 07/25/23 oxyCODONE [Roxicodone] 5 mg PO Q4HR PRN #28 tab 07/25/23 - Allergies Allergies/Adverse Reactions: Allergies Allergy/AdvReac Type Severity Reaction Status Date / Time diphenhydramine HCl * Allergy Unknown Verified 07/23/23 13:48 [From Neil] Review of Systems - Gastrointestinal Gastrointestinal: reports: Abdominal pain Exam - Vital Signs Reviewed Vital Signs: Yes Vital Signs: Vital Signs x48h Pulse Resp BP Pulse Ox 07/23/23 12:30 75 16 150/92 H 97 07/23/23 09:47 142 H 18 161/100 H 98 07/23/23 06:40 94 20 147/82 H 96 - Physical Exam General Appearance: positive: No acute distress, Alert, Moderate distress Eyes Bilateral: positive: Conjunctivae nml Neck: positive: No JVD Respiratory: positive: Other (Good air exchange in all lung [place] no wheezing no crackles.) Cardiovascular: positive: Other (Positive S1-S2 no extra heart sounds.) Abdomen: positive: Other (Soft. Positive tenderness on palpation in all 4 quadrants. No guarding no peritoneal signs. Hypoactive bowel sounds.) Skin: positive: No rash Extremities: positive: No pedal edema Neurologic/Psychiatric: positive: Oriented x3, Motor nml Conclusion/Plan - Problem List (1) Acute alcoholic pancreatitis Conclusion/Plan: Mr. Fiore will be admitted to the hospital as an inpatient. Plan is treatment with fluid hydration and pain control with a Dilaudid PAYABLE MANAGER pump. We will continue to follow his electrolytes serially and replace electrolytes as needed. (2) Tobacco dependence Conclusion/Plan: Patient counseled to stop smoking. - Lab Results Fish Bones: 07/23/23 13:54 07/25/23 05:47
[2023-07-23 14:00] LABS: BASOPHILS % (AUTO) 0.1 %; EOSINOPHILS # (AUTO) 0.1 10^3/uL (0.0-0.7); EOSINOPHILS % (AUTO) 0.6 %; HCT - HEMATOCRIT 46.6 % (42.0-52.0); HGB - HEMOGLOBIN 15.8 g/dL (14.0-18.0); LYMPHOCYTES # (AUTO) 0.9 10^3/uL (1.5-3.5); LYMPHOCYTES % (AUTO) 6.1 %; MEAN CORPUSCULAR HEMOGLOBIN 31.4 pg (27.0-31.0); MEAN CORPUSCULAR HGB CONC 33.9 g/dL (32.0-36.0); MEAN CORPUSCULAR VOLUME 92.6 fL (80.0-94.0); MEAN PLATELET VOLUME 9.8 fL (7.4-11.4); MONOCYTES # (AUTO) 0.8 10^3/uL (0.0-1.0); MONOCYTES % (AUTO) 5.4 %; NEUTROPHILS # (AUTO) 12.2 10^3/uL (1.5-6.6); NEUTROPHILS % (AUTO) 87.4 %; PLT - PLATELET COUNT 249 10^3/uL (130-450); RED BLOOD COUNT 5.03 10^6/uL (4.70-6.10); RED CELL DISTRIBUTION WIDTH 12.5 % (12.0-15.0)
[2023-07-23 14:14] LABS: ALBUMIN 4.5 g/dL (3.2-5.5); ALBUMIN/GLOBULIN RATIO 1.3 (1.0-2.2); BILIRUBIN,TOTAL 0.7 mg/dL (0.2-1.0); CALCIUM 9.6 mg/dL (8.5-10.3); CREATININE 0.9 mg/dL (0.6-1.3); MAGNESIUM 1.9 mg/dL (1.7-2.3); PHOSPHORUS 2.9 mg/dL (2.5-5.0); POTASSIUM 3.8 mmol/L (3.5-4.5); TOTAL PROTEIN 8.1 g/dL (6.4-8.9)
[2023-07-23] MEDS: LACTATED RINGERS 1,000 ML IV SCH (14:37)
[2023-07-23 15:02] LABS: BILIRUBIN,URINE MODERATE (NEGATIVE); GLUCOSE, URINE (UA) NEGATIVE (NEGATIVE); KETONES,URINE (UA) >=80 mg/dL (NEGATIVE); LEUKOCYTE ESTERASE, URINE NEGATIVE (NEGATIVE); NITRITE,URINE NEGATIVE (NEGATIVE); OCCULT BLOOD,URINE SMALL (NEGATIVE); PROTEIN,URINE 30 mg/dL (NEGATIVE); UROBILINOGEN,URINE 0.2 (NORMAL) E.U./dL (NORMAL)
[2023-07-23 15:03] LABS: CLARITY,URINE HAZY (CLEAR)
[2023-07-23 15:14] LABS: BACTERIA,URINE Rare /HPF (None Seen); SQUAMOUS EPITHELIAL CELL,UR RARE Squamous (<= Few)
[2023-07-23] MEDS: HYDROmorphone PCA 20MG/100ML IV PRN (15:55)
[2023-07-23] MEDS: SODIUM CHLORIDE FLUSH 0.9% 10 ML SYRINGE IVP SCH (15:56)
[2023-07-23] MEDS: NICOTINE 21 MG PATCH TOP SCH (17:30)
[2023-07-23] MEDS: PROCHLORPERAZINE 10 MG/2 ML VIAL IVP PRN (22:03)
[2023-07-24] MEDS: polyethylene glycoL 3350 17 GM PACKET PO SCH (08:50)
[2023-07-24] MEDS ORDERED: NICOTINE 21 MG PATCH TOP SCH (09:00)
--- NOTE | 2023-07-24 10:06 | PHARMACY PROGRESS NOTE ---
- Best Possible Medication History Admit Date and Time: 07/23/23 6288 Processed by: Nursing Medications reviewed in ED?: Yes As the person ultimately responsible for medication therapy, providers are able to order a medication from an existing home medication list in [facility] via the "Reconcile Routine" prior to Confirmation of that medication by application support technician. Such practice is discouraged except when the physician, in their clinical judgment, deems that a medical need exists for a medication without regard to previous use.
--- NOTE | 2023-07-24 23:04 | PROVIDER PROGRESS NOTE ---
Assessment/Plan - Problem List (1) Acute alcoholic pancreatitis Assessment/Plan: Continue fluid hydration with lactated Ringer's Continue pain control with fentanyl SENIOR TELECOMMUNICATIONS ENGINEER. Patient remains n.p.o. (2) Tobacco dependence Assessment/Plan: Patient counseled to quit smoking. (3) Alcohol abuse Assessment/Plan: Patient counseled to abstain from drinking alcohol. - Current Meds Current Meds: Current Medications Generic Name Dose Route Start Last Admin Trade Name Freq PRN Reason Stop Dose Admin Lactated Ringer's 1,000 mls @ 125 mls/hr 07/23/23 14:00 07/24/23 17:46 Lr IV 125 mls/hr .Q8H SAMANTHA Administration Nicotine 1 patch 07/23/23 17:05 07/24/23 08:50 Nicotine 21 Mg Patch TOP 1 patch DAILY SAMANTHA Administration Polyethylene Glycol 17 gm 07/24/23 09:00 07/24/23 08:50 Polyethylene Glycol 3350 17 Gm Packet PO Not Given DAILY SAMANTHA Prochlorperazine Edisylate 10 mg 07/23/23 21:43 07/24/23 17:39 Prochlorperazine 10 Mg/2 Ml Vial IVP 10 mg Q6HR PRN Administration Nausea / Vomiting Sodium Chloride 10 ml 07/23/23 17:00 07/24/23 17:40 Sodium Chloride Flush 0.9% 10 Ml Syringe IVP 10 ml 0100,0900,1700 SAMANTHA Administration - Lab Result Fish Bone Diagrams: 07/23/23 13:54 07/25/23 05:47 - Additional Planning My Orders: My Active Orders 07/24/23 09:00 polyethylene glycoL 3350 [Miralax] 17 gm PO DAILY 07/24/23 16:32 fentaNYL SENIOR TELECOMMUNICATIONS ENGINEER [fentaNYL SENIOR TELECOMMUNICATIONS ENGINEER (USE SENIOR TELECOMMUNICATIONS ENGINEER ORDER SET)] 500 mcg IV SENIOR TELECOMMUNICATIONS ENGINEER PRN Subjective - Subjective Patient Reports: Other (Alert. Reports his abdominal pain has improved but has not resolved. He denies chest pain shortness of breath fever and chills. He has no other complaints at this time) Objective Vital Signs: Vital Signs - 24 hr 07/23/23 07/23/23 07/24/23 23:36 23:52 05:36 Temperature 36.6 C Heart Rate [ 56 L Brachial] Respiratory 20 16 16 Rate Blood Pressure 156/84 H [Right Brachial artery] O2 Saturation 99 07/24/23 07/24/23 07/24/23 07:21 08:00 10:00 Temperature 36.4 C L Heart Rate [ 68 Brachial] Respiratory 16 16 16 Rate Blood Pressure 152/97 H [Right Brachial artery] O2 Saturation 95 07/24/23 07/24/23 07/24/23 12:00 14:00 16:00 Temperature 36.3 C L Heart Rate [ 85 Brachial] Respiratory 16 17 18 Rate Blood Pressure 154/98 H [Right Brachial artery] O2 Saturation 98 07/24/23 07/24/23 07/24/23 18:00 20:00 21:37 Temperature Heart Rate [ Brachial] Respiratory 18 18 16 Rate Blood Pressure [Right Brachial artery] O2 Saturation Oxygen O2 Source Room air I&O (Last 24 Hrs): Intake and Output Totals x24h 07/22/23 07/23/23 07/24/23 23:59 23:59 23:59 Intake Total 3815.583 1999 Balance 3815.583 1999 General: Alert, Oriented x3, Cooperative Neck: No JVD Neuro: Alert, Non Focal Cardiovascular: Other (Positive S1-S2 no extra heart sounds.) Respiratory: Other (Good air exchange in all lung [place] no wheezing no crackles.) Abdomen: Other (Soft. Mild tenderness to palpation in all 4 quadrants. No guarding no peritoneal signs. Hypoactive bowel sounds.) Extremities: No cyanosis, No edema Skin: No rashes - Results Results: Laboratory Results WBC 14.0 x10^3/uL (4.8-10.8) H 07/23/23 13:54 RBC 5.03 10^6/uL (4.70-6.10) 07/23/23 13:54 Hgb 15.8 g/dL (14.0-18.0) 07/23/23 13:54 Hct 46.6 % (42.0-52.0) 07/23/23 13:54 MCV 92.6 fL (80.0-94.0) 07/23/23 13:54 MCH 31.4 pg (27.0-31.0) H 07/23/23 13:54 MCHC 33.9 g/dL (32.0-36.0) 07/23/23 13:54 RDW 12.5 % (12.0-15.0) 07/23/23 13:54 Plt Count 249 10^3/uL (130-450) 07/23/23 13:54 MPV 9.8 fL (7.4-11.4) 07/23/23 13:54 Neut # (Auto) 12.2 10^3/uL (1.5-6.6) H 07/23/23 13:54 Lymph # (Auto) 0.9 10^3/uL (1.5-3.5) L 07/23/23 13:54 Crowley # (Auto) 0.8 10^3/uL (0.0-1.0) 07/23/23 13:54 Eos # (Auto) 0.1 10^3/uL (0.0-0.7) 07/23/23 13:54 Baso # (Auto) 0.0 10^3/uL (0.0-0.1) 07/23/23 13:54 Absolute Nucleated RBC 0.00 x10^3/uL 07/23/23 13:54 Nucleated RBC % 0.0 /100WBC 07/23/23 13:54 Sodium 134 mmol/L (135-145) L 07/23/23 13:54 Potassium 3.8 mmol/L (3.5-4.5) 07/23/23 13:54 Chloride 100 mmol/L (101-111) L 07/23/23 13:54 Carbon Dioxide 22 mmol/L (21-32) 07/23/23 13:54 Anion Gap 12.0 (6-13) 07/23/23 13:54 BUN 14 mg/dL (6-20) 07/23/23 13:54 Creatinine 0.9 mg/dL (0.6-1.3) 07/23/23 13:54 Estimated GFR (MDRD) 98 (>89) 07/23/23 13:54 Glucose 136 mg/dL (74-104) H 07/23/23 13:54 Calcium 9.6 mg/dL (8.5-10.3) 07/23/23 13:54 Phosphorus 2.9 mg/dL (2.5-5.0) 07/23/23 13:54 Magnesium 1.9 mg/dL (1.7-2.3) 07/23/23 13:54 Total Bilirubin 0.7 mg/dL (0.2-1.0) 07/23/23 13:54 AST 26 IU/L (10-42) 07/23/23 13:54 ALT 25 IU/L (10-60) 07/23/23 13:54 Alkaline Phosphatase 125 IU/L (42-121) H 07/23/23 13:54 Total Protein 8.1 g/dL (6.4-8.9) 07/23/23 13:54 Albumin 4.5 g/dL (3.2-5.5) 07/23/23 13:54 Globulin 3.6 g/dL (2.1-4.2) 07/23/23 13:54 Albumin/Globulin Ratio 1.3 (1.0-2.2) 07/23/23 13:54 Lipase 536 U/L (11-82) H 07/22/23 23:40 Urine Color DARK YELLOW 07/23/23 14:45 Urine Clarity HAZY (CLEAR) 07/23/23 14:45 Urine pH 6.0 PH (5.0-7.5) 07/23/23 14:45 Ur Specific [place] >=1.030 (1.002-1.030) H 07/23/23 14:45 Urine Protein 30 mg/dL (NEGATIVE) H 07/23/23 14:45 Urine Glucose (UA) NEGATIVE mg/dL (NEGATIVE) 07/23/23 14:45 Urine Ketones >=80 mg/dL (NEGATIVE) H 07/23/23 14:45 Urine Occult Blood SMALL (NEGATIVE) H 07/23/23 14:45 Urine Nitrite NEGATIVE (NEGATIVE) 07/23/23 14:45 Urine Bilirubin MODERATE (NEGATIVE) H 07/23/23 14:45 Urine Urobilinogen 0.2 (NORMAL) E.U./dL (NORMAL) 07/23/23 14:45 Ur Leukocyte Esterase NEGATIVE (NEGATIVE) 07/23/23 14:45 Urine RBC 6-10 /HPF (0-5) H 07/23/23 14:45 Urine WBC 4-5 /HPF (0-3) 07/23/23 14:45 Ur Squamous Epith Cells RARE Squamous (<= Few) 07/23/23 14:45 Urine Bacteria Rare /HPF (None Seen) 07/23/23 14:45 Ur Microscopic Review INDICATED 07/23/23 14:45 Urine Culture Comments NOT INDICATED 07/23/23 14:45
[2023-07-25] MEDS: fentaNYL PCA 500 MCG IV PRN (05:16)
[2023-07-25 06:13] LABS: CREATININE 0.6 mg/dL (0.6-1.3); MAGNESIUM 1.5 mg/dL (1.7-2.3); PHOSPHORUS 2.5 mg/dL (2.5-5.0); POTASSIUM 3.5 mmol/L (3.5-4.5)
[2023-07-25] MEDS: oxyCODONE 5 MG TABLET PO PRN (09:45)
--- NOTE | 2023-07-25 18:07 | Discharge Plan ---
Discharge Plan Problem Reviewed?: Yes Disposition: 01 Home, Self Care Condition: Good Prescriptions: oxyCODONE [Roxicodone] 5 mg PO Q4HR PRN #28 tab PRN Reason: Moderate Pain (Level 4-6) Nicotine 21 mg Patch [Nicoderm] 1 patch TOP DAILY #30 patch Diet: Soft Activity Restrictions: Activity as Tolerated Shower Restrictions: No Driving Restrictions: No Weight Bearing: Full Weight Instruction Topics: Pancreatitis Health Concerns: Jorge Fiore is a 32-year-old man who presented to the emergency room on July 23, 2023 with abdominal pain. He reports he has been drinking alcohol for the past 2 to 3 days after the recent of his father. He complained of nausea and vomiting. Laboratory studies obtained in the emergency room revealed a lipase of 536. He underwent an abdominal/pelvis CT scan on July 23, 2023 which revealed moderate. Pancreatic inflammatory changes. Mr. Fiore was admitted to the hospital as an inpatient and treated with IV fluids and pain control with a Dilaudid MANAGER MARKETING COMMUNICATION. On hospital day #2 his pain symptoms were improved and on hospital day #3 patient reported that his pain was significantly improved and he felt much better. Patient was started on a clear liquid diet and has done well throughout the day. He does not wish to remain in the hospital at this time and I feel it is safe for him to discharge to home. Prior to discharge we discussed the importance of abstaining from alcohol use and the effect of alcohol on the pancreas. It was recommended that he never drink alcohol again. Patient was encouraged to be conservative in advancing his diet and it was recommended that he continue with a low residue low-fat diet for 2-3 more days and advance as tolerated. Plan of Treatment: 1. Please take all medications as prescribed 2. Please return to the emergency room if you have significant abdominal pain or develop a fever greater than 101.5. 3. Please please obtain a primary care provider. Care Goals: Goal of care is to return to baseline function and to eventually the pain-free from this episode of acute pancreatitis. Assessment: Mr. Jorge Fiore is a 32-year-old man who developed an episode of alcoholic pancreatitis. He was treated with IV fluid and pain control. His symptoms have resolved and he is safe for discharged home. No Smoking: If you smoke, Please STOP! Call for help.
[2023-07-25 18:54] VITALS: BP 153/105; O2SAT 97
--- NOTE | 2023-07-25 18:58 | DISCHARGE SUMMARY ---
Discharge Summary Admit Date: 07/23/23 Discharge Date: 07/25/23 Discharging Provider: Reese Joe MD Code Status: Attempt Resuscitation Condition at Discharge: Good Discharge Disposition: 01 Home, Self Care Discharge Facility [facility]: [facility] - DIAGNOSES Admission Diagnoses: (1) Acute alcoholic pancreatitis (2) Tobacco dependence Discharge Diagnoses with Status of Each Condition: (1) Acute alcoholic pancreatitis (2) Tobacco dependence (3) Alcohol abuse - HPI History of Present Illness: Jorge Fiore is a 32-year-old man who presented to the emergency room on July 23, 2023 with abdominal pain. He reports he has been drinking alcohol for the past 2 to 3 days after the recent of his father. He complained of nausea and vomiting. Laboratory studies obtained in the emergency room revealed a lipase of 536. He underwent an abdominal/pelvis CT scan on July 23, 2023 which revealed moderate. Pancreatic inflammatory changes. Mr. Fiore was admitted to the hospital as an inpatient and treated with IV fluids and pain control with a Dilaudid NODULIZER. On hospital day #2 his pain symptoms were improved and on hospital day #3 patient reported that his pain was significantly improved and he felt much better. Patient was started on a clear liquid diet and has done well throughout the day. He does not wish to remain in the hospital at this time and I feel it is safe for him to discharge to home. Prior to discharge we discussed the importance of abstaining from alcohol use and the effect of alcohol on the pancreas. It was recommended that he never drink alcohol again. Patient was encouraged to be conservative in advancing his diet and it was recommended that he continue with a low residue low-fat diet for 2-3 more days and advance as tolerated. - HOSPITAL COURSE Hospital Course: See HPI - ALLERGIES Allergies/Adverse Reactions: Allergies Allergy/AdvReac Type Severity Reaction Status Date / Time diphenhydramine HCl * Allergy Unknown Verified 07/23/23 13:48 [From Benadryl] - MEDICATIONS Home Medications: Ambulatory Orders Medication Instructions Recorded Confirmed Omeprazole Magnesium 20 mg PO QDBREAKFAST 30 Days #30 12/15/22 07/23/23 tab Nicotine 14 mg Patch [Nicoderm] 1 each TOP Q24H 14 Days #14 patch 07/25/23 Nicotine 21 mg Patch [Nicoderm] 1 patch TOP DAILY #30 patch 07/25/23 Nicotine 7 mg Patch [Nicoderm] 1 each TOP Q24H 14 Days #14 patch 07/25/23 oxyCODONE [Roxicodone] 5 mg PO Q4HR PRN #28 tab 07/25/23 - PHYSICAL EXAM AT DISCHARGE General Appearance: positive: No acute distress, Alert Eyes Bilateral: positive: Conjunctivae nml Neck: positive: Nml inspection, Thyroid nml, No JVD Respiratory: positive: Other (Good air exchange in all lung [place] no wheezing no crackles.) Cardiovascular: positive: Other (Positive S1-S2 no extra heart sounds.) Abdomen: positive: Other (Soft nontender nondistended positive bowel sounds.) Skin: positive: No rash Extremities: positive: Nml appearance, Pedal edema - LABS Result Diagrams: 07/23/23 13:54 07/25/23 05:47 - FOLLOW UP Follow Up: Please obtain a primary care provider. - TIME SPENT Time Spent in Discharge (Minutes): 28
== END 2023-07-25 19:05 | disposition home or self-care (01) | DRG 439 ==
LOC: ED 23:23 → MS2 07-23 12:58
PROVIDERS: ADMIT Internal Medicine; ATTEND Internal Medicine
DX: K85.20 Alcohol induced acute pancreatitis without necrosis or infection (principal); E87.1 Hypo-osmolality and hyponatremia; F17.200 Nicotine dependence, unspecified, uncomplicated; F10.10 Alcohol abuse, uncomplicated; D72.829 Elevated white blood cell count, unspecified; R79.89 Other specified abnormal findings of blood chemistry; E83.52 Hypercalcemia; Z63.4 Disappearance and death of family member; Z79.899 Other long term (current) drug therapy
CPT/HCPCS: 36415; 74177; 80048; 80053; 81001; 83690; 83735; 84100; 85025; 93005; 96374; 96375; 99285; A9270; J1170; J2060; J7120; Q9967; 81003; 87086

== ENCOUNTER 2023-11-20 13:27 | Outpatient (CLI) | payer OTHER, MEDICAID | END 2023-11-20 13:28 | disposition critical access hospital (66) | LOC: EMS 13:27 | DX: M54.2 Cervicalgia (principal); S40.212A Abrasion of left shoulder, initial encounter; S30.811A Abrasion of abdominal wall, initial encounter; V49.40XA Driver injured in collision with unspecified motor vehicles in traffic accident, initial encounter; Y92.413 State road as the place of occurrence of the external cause | CPT/HCPCS: A0425; A0429 ==

== ENCOUNTER 2023-11-20 13:50 | Emergency (ER) | payer MEDICAID ==
[2023-11-20 14:02] VITALS: BP 110/62
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
[2023-11-20 15:21] VITALS: O2SAT 98
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
== END 2023-11-20 16:10 | disposition home or self-care (01) ==
LOC: EDUNIT# → ED 13:50
DX: S16.1XXA Strain of muscle, fascia and tendon at neck level, initial encounter (principal); S39.012A Strain of muscle, fascia and tendon of lower back, initial encounter; V53.5XXA Driver of pick-up truck or van injured in collision with car, pick-up truck or van in traffic accident, initial encounter; Y93.89 Activity, other specified; F17.200 Nicotine dependence, unspecified, uncomplicated
CPT/HCPCS: 99283; 99284

== ENCOUNTER 2024-04-29 06:02 | Observation (INO) ==
[2024-04-29 06:38] LABS: BASOPHILS % (AUTO) 0.3 %; EOSINOPHILS # (AUTO) 0.3 10^3/uL (0.0-0.7); EOSINOPHILS % (AUTO) 2.9 %; HCT - HEMATOCRIT 45.4 % (42.0-52.0); LYMPHOCYTES % (AUTO) 19.9 %; MEAN CORPUSCULAR HGB CONC 35.2 g/dL (32.0-36.0); MEAN CORPUSCULAR VOLUME 93.6 fL (80.0-94.0); MEAN PLATELET VOLUME 9.4 fL (7.4-11.4); MONOCYTES # (AUTO) 0.7 10^3/uL (0.0-1.0); MONOCYTES % (AUTO) 6.6 %; NEUTROPHILS % (AUTO) 70.1 %; PLT - PLATELET COUNT 319 10^3/uL (130-450); RED BLOOD COUNT 4.85 10^6/uL (4.70-6.10); RED CELL DISTRIBUTION WIDTH 11.9 % (12.0-15.0)
[2024-04-29 06:51] LABS: ALBUMIN 4.4 g/dL (3.2-5.5); ALBUMIN/GLOBULIN RATIO 1.3 (1.0-2.2); BILIRUBIN,TOTAL 0.4 mg/dL (0.2-1.0); CALCIUM 9.9 mg/dL (8.5-10.3); CREATININE 0.9 mg/dL (0.6-1.3); POTASSIUM 3.9 mmol/L (3.5-4.5); TOTAL PROTEIN 7.8 g/dL (6.4-8.9)
[2024-04-29] MEDS: HYDROmorphone 1 MG/ML CARPUJECT IVP STA ×3 (07:01→15:12)
[2024-04-29] MEDS: ONDANSETRON 4 MG/2 ML VIAL IVP STA (07:01)
[2024-04-29] MEDS: SODIUM CHLORIDE 0.9% 1,000 ML IV STA ×2 (07:02→10:47)
--- NOTE | 2024-04-29 07:03 | ED Physician Documentation ---
PD HPI ABD PAIN Stated complaint Stated Complaint: CHEST/STOMACH PAIN Chief complaint Chief Complaint: Abd Pain History obtained from History obtained from: Patient History of Present Illness Timing - onset: How many days ago (2-3) Timing - duration: Days Timing - details: Gradual onset (some pain 2-3 days ago, but severely increased overnight/last night into today. ) Quality: Cramping, Aching and Pain Location: Epigastric Radiation: Lower back Improved by: Laying still Worsened by: Eating, Moving, Breathing and Palpation Associated symptoms: Nausea and Vomiting; No Hematemesis or Diarrhea Similar symptoms before: Diagnosis (pancreatitis due to alcohol. ) Meds/Allgy Home Medications Ambulatory Orders Medication Instructions Recorded Confirmed omeprazole magnesium 20 mg 20 mg PO QDBREAKFAST 30 days #30 12/15/22 07/23/23 tablet,delayed release tabs cyclobenzaprine 10 mg tablet 10 mg PO TID PRN Spasms #20 tabs 11/20/23 Allergies Allergies Allergy/AdvReac Type Severity Reaction Status Date / Time No Known Drug Allergies Allergy Verified 04/29/24 06:21 [facility] Medical History Medical History (Updated 04/29/24 @ 17:35 by Jaime Montenegro MD) Chronic pain Pancreatitis Acute Crohn's disease Surgical History Surgical History Hx of tonsillectomy Social History Social History Smoking Status: Current every day smoker Number of Years Smoked: 12 How many cigarettes a day do you smoke? (20 cigarettes=1 Pk): 20 Do you dip or chew tobacco?: No Do you vape?: Yes Living arrangement: At home Living Condition: With spouse/s.o. Relationship: Level: Independent Do you feel safe in your home environment?: Yes Suffered physical, verbal, emotional, or financial abuse?: No History of Abuse: No Frequency: Daily ETOH Use Details: pt states he drinks a few times a week, however is attempting to quite drinking due to pancreatitis. Substance Use: cannabis (any form) Are you sexually active?: Yes POLST Patient has POLST: No POLST Status: Full Code Exam Constitutional normal general appearance, distress noted (severe) and average body habitus Lymph no lymphadenopathy noted Respiratory breath sounds equal bilaterally, normal respiratory effort and no wheezes Cardiovascular normal heart rate noted and regular rhythm noted Gastrointestinal tender to palpation (severe) and (epigastric) and tender to percussion Genitourinary no CVA tenderness Results Vitals Vitals: Vital Signs - 24 hr 04/29/24 06:21 04/29/24 06:37 04/29/24 07:01 Temperature 36.8 C Temperature Source Oral Pulse Rate 112 H Respiratory Rate 20 Blood Pressure 131/106 H O2 Saturation 97 O2 Source Room air Pain Intensity 10 10 04/29/24 07:29 04/29/24 07:35 04/29/24 08:20 Temperature 35.8 C L Temperature Source Temporal Artery Scan Pulse Rate 92 Respiratory Rate 18 Blood Pressure 156/110 H O2 Saturation 98 O2 Source Room air Pain Intensity 9 9 10 04/29/24 08:23 04/29/24 08:23 04/29/24 08:23 Temperature Temperature Source Pulse Rate Respiratory Rate Blood Pressure O2 Saturation O2 Source Pain Intensity 10 10 10 04/29/24 09:24 04/29/24 09:24 04/29/24 09:25 Temperature Temperature Source Pulse Rate 86 Respiratory Rate 18 Blood Pressure 141/108 H O2 Saturation 95 O2 Source Room air Pain Intensity 5 5 04/29/24 10:47 04/29/24 11:03 04/29/24 11:52 Temperature Temperature Source Pulse Rate Respiratory Rate Blood Pressure O2 Saturation O2 Source Pain Intensity 7 7 4 04/29/24 11:52 04/29/24 11:53 04/29/24 13:27 Temperature Temperature Source Pulse Rate 69 Respiratory Rate 18 Blood Pressure 142/84 H O2 Saturation 94 O2 Source Room air Pain Intensity 4 8 Oxygen O2 Source Room air Labs Labs: Laboratory Tests 04/29/24 04/29/24 06:22 09:06 WBC 10.0 RBC 4.85 Hgb 16.0 Hct 45.4 MCV 93.6 MCH 33.0 H MCHC 35.2 RDW 11.9 L Plt Count 319 MPV 9.4 Neut # (Auto) 7.0 H Lymph # (Auto) 2.0 [place] # (Auto) 0.7 Eos # (Auto) 0.3 Baso # (Auto) 0.0 Absolute Nucleated RBC 0.00 Nucleated RBC % 0.0 Sodium 136 Potassium 3.9 Chloride 97 L Carbon Dioxide 29 Anion Gap 10.0 BUN 12 Creatinine 0.9 Estimated GFR (MDRD) 97 Glucose 146 H Calcium 9.9 Magnesium 2.0 Total Bilirubin 0.4 AST 64 H ALT 95 H Alkaline Phosphatase 141 H Total Protein 7.8 Albumin 4.4 Globulin 3.4 Albumin/Globulin Ratio 1.3 Lipase 76 Urine Color YELLOW Urine Clarity CLEAR Urine pH 7.5 Ur Specific [place] 1.015 Urine Protein TRACE Urine Glucose (UA) NEGATIVE Urine Ketones NEGATIVE Urine Occult Blood NEGATIVE Urine Nitrite NEGATIVE Urine Bilirubin NEGATIVE Urine Urobilinogen 0.2 (NORMAL) Ur Leukocyte Esterase NEGATIVE Ur Microscopic Review NOT INDICATED Urine Culture Comments NOT INDICATED Ethyl Alcohol < 10.0 PD Medical Decision Making ED course Complexity details: reviewed results (Lipase in normal range but pain is c/w pancreatitis. Got CT scan to ensure the Dx since lab normal. CT showing edema of the pancreas c/w pancreatitis. ), re-evaluated patient (needing repeat dosings of Dilaudid for pain improvement and control. Subsequently the dilaudid was not as effective or duration. Gave dose of Ketamine to mix up the meds and was effective. ), considered differential (pain character and location is similar for pt to prior pancreatitis. Had had a few beers 4 days ago because "it wass the Super Bowl and had to have some drinks". ) and d/w chain sales consultant (talked with hospitalist once hospital beds became available and they will see pt for admission. ) Discharge Plan Discharge Patient Disposition: 66 [facility] DC/Xfer Condition: Stable Clinical Impression: Acute recurrent pancreatitis, Intractable abdominal pain Abdominal pain Qualifiers: Abdominal location: upper abdomen, unspecified Qualified Code(s): R10.10 - Upper abdominal pain, unspecified Interventions: ED Admission Assessment Last Done: 04/29/24 16:04
[2024-04-29] MEDS: FAMOTIDINE 20 MG/2 ML VIAL IVP STA (07:28)
[2024-04-29 07:33] LABS: ETOH - ETHANOL < 10.0 mg/dL
[2024-04-29] MEDS: HYDROmorphone 2 MG/ML VIAL IVP STA ×3 (08:23→13:27)
[2024-04-29] MEDS: KETOROLAC 15 MG/ML VIAL IVP STA ×2 (08:23→11:03)
[2024-04-29] MEDS ORDERED: iohexoL-300 100 ML VIAL ONE (08:41)
[2024-04-29 09:13] LABS: BILIRUBIN,URINE NEGATIVE (NEGATIVE); GLUCOSE, URINE (UA) NEGATIVE (NEGATIVE); KETONES,URINE (UA) NEGATIVE (NEGATIVE); LEUKOCYTE ESTERASE, URINE NEGATIVE (NEGATIVE); NITRITE,URINE NEGATIVE (NEGATIVE); OCCULT BLOOD,URINE NEGATIVE (NEGATIVE); PH,URINE 7.5 PH (5.0-7.5); PROTEIN,URINE TRACE mg/dL (NEGATIVE); UROBILINOGEN,URINE 0.2 (NORMAL) E.U./dL (NORMAL)
[2024-04-29 09:14] LABS: CLARITY,URINE CLEAR (CLEAR)
[2024-04-29] MEDS: iohexoL-300 100 ML VIAL IVP ONE (09:31)
--- NOTE | 2024-04-29 09:42 | CT Report ---
PROCEDURE: CT Abdomen/Pelvis W INDICATIONS: upper abd pain CONTRAST: OMNI 300 100ML TECHNIQUE: After the administration of intravenous contrast, a CT scan of the abdomen and pelvis was performed. Images were recorded and evaluated at appropriate window settings. Reformats: coronal and sagittal. F or radiation dose reduction, the following was used: automated exposure control, adjustment of mA and /or kV according to patient size. COMPARISON: 07/23/2023. FINDINGS: Image quality: Diagnostic. Lower chest: Unremarkable. Liver: No solid mass. Moderate to severe hepatic steatosis is seen. Gallbladder: No radiopaque stones or wall thickening. Biliary tree: No intrahepatic or extrahepatic dilation, accounting for age. Spleen: Mild splenomegaly. Pancreas: No pancreatic ductal dilation. Slight heterogeneous enhancement of pancreas with mild perip ancreatic fat stranding is seen. No discrete drainable peripancreatic fluid collection. Adrenals: No adrenal nodule. Kidneys and ureters: No hydronephrosis. No renal cystic lesion which requires follow up. No solid mas s. Stomach, bowel and peritoneum: Distended stomach lumen, without discrete gastric wall mass or signifi cant wall thickening. There is no bowel obstruction. No small bowel wall thickening. Appendix is visu alized and is within normal limits. Questionable mild diffuse colonic wall thickening is seen with sl ight narrowing of the lumen. No significant pericolonic fat stranding. No abscess collection. No free fluid of free air. Lymph nodes: No central or retroperitoneal adenopathy. Vessels: No infrarenal aortic aneurysm. Patent portal vein. PELVIS Reproductive organs: Unremarkable. Bladder: No abnormal wall thickening, accounting for underdistention. Pelvic lymph nodes: No pelvic adenopathy by size criteria. Bones: No aggressive osseous abnormality. Other: No significant ventral or inguinal hernia. IMPRESSION: 1. Mild peripancreatic inflammatory changes, concerning for acute pancreatitis. No peripancreatic flu id collection. No discrete pancreatic mass. 2. Questionable diffuse colonic wall thickening which may be due to underdistention. Low-grade infect ious or inflammatory colitis cannot be excluded. No bowel obstruction or other area of abnormal bowel wall thickening. Normal appendix. No free fluid of free air. 3. Hepatic steatosis unchanged from prior study. Mild splenomegaly. Reviewed by: Lawrence Campbell MD on 04/29/2024 9:41 AM PST Approved by: Lawrence Campbell MD on 04/29/2024 9:41 AM PST Station ID: [id number]
[2024-04-29] MEDS: KETAMINE 500 MG/10 ML VIAL IVP STA (14:17)
[2024-04-29] MEDS: SODIUM CHLORIDE 0.9% 1,000 ML IV SCH (14:19)
[2024-04-29] MEDS: ONDANSETRON ODT 4 MG TABLET TL STA (15:14)
[2024-04-29] MEDS ORDERED: ONDANSETRON ODT 4 MG TABLET TL PRN (16:02)
[2024-04-29] MEDS ORDERED: ONDANSETRON 4 MG/2 ML VIAL IVP PRN (16:02)
[2024-04-29] MEDS ORDERED: SODIUM CHLORIDE FLUSH 0.9% 10 ML SYRINGE IVP PRN (16:02)
[2024-04-29] MEDS: SODIUM CHLORIDE FLUSH 0.9% 10 ML SYRINGE IVP SCH (16:08)
[2024-04-29] MEDS: MORPHINE 2 MG/ML CARPUJECT IVP PRN (16:08)
--- NOTE | 2024-04-29 16:29 | PROVIDER PROGRESS NOTE ---
Subjective Prog Note Date Prog Note Date: 04/29/24 Prog Note Time: 16:25 Subjective Subjective: Patient is a 33 year old male with a history of alcohol abuse and Crohn's disease who was admitted from the emergency department with acute pancreatitis likely brought on by alcohol abuse. Patient stated he has been hospitalized on two prior occasions for this same condition, but he said the pain is worse this time around. Patient stated the pain started around 8 pm yesterday evening (04/28/24) after he finished eating dinner. The pain continued to worsen and his mother brought him into the ED today. Patient had just been given a dose of ketamine when I first saw him in the ER, and was actively vomiting. He was not able to answer any questions at that time. I saw him again a couple hours later after he had been transferred to his room. Patient was up and walking around the room but was clearly in severe pain. He rated his pain as a 10/10, localized to the periumbilical region. He also stated his left lower abdominal quadrant was tender to palpation. He denied fever, chills, diarrhea. Patient lives with his mother, and his son half of the time. 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 Patient said he currently drinks 3 large cans of a sugary alcoholic beverage every day and smokes marijuana multiple times per day. He denies any other substance use. At the end of our conversation, patient was holding his abdomen and rocking back and forth. He was diaphoretic and appeared to be in severe pain. Current Medications Current Medications Current Medications: Current Medications Generic Name Dose Route Start Last Admin Trade Name Freq PRN Reason Stop Dose Admin Enoxaparin Sodium 40 mg 04/30/24 09:00 Enoxaparin 40 Mg/0.4 Ml Syringe SUBQ DAILY SAMANTHA Sodium Chloride 1,000 mls @ 250 mls/hr 04/29/24 14:00 04/29/24 14:19 Normal Saline 0.9% IV 250 mls/hr .Q4H SAMANTHA Administration Morphine Sulfate 2 mg 04/29/24 16:02 04/29/24 16:08 Morphine 2 Mg/Ml Carpuject IVP 2 mg Q4HR PRN Administration Pain 8 to 10 Ondansetron HCl 4 mg 04/29/24 16:02 Ondansetron Odt 4 Mg Tablet TL Q6HR PRN Nausea / Vomiting Ondansetron HCl 4 mg 04/29/24 16:02 Ondansetron 4 Mg/2 Ml Vial IVP Q6HR PRN Nausea / Vomiting Pantoprazole Sodium 40 mg 04/30/24 07:00 Pantoprazole 40 Mg Tablet PO QDAC [facility] Prochlorperazine Edisylate 10 mg 04/29/24 16:22 Prochlorperazine 10 Mg/2 Ml Vial IVP Q6HR PRN Nausea / Vomiting Sodium Chloride 10 ml 04/29/24 16:02 Sodium Chloride Flush 0.9% 10 Ml Syringe IVP PRN PRN NEEDED PER PROVIDER ORDERS Sodium Chloride 10 ml 04/29/24 17:00 04/29/24 16:08 Sodium Chloride Flush 0.9% 10 Ml Syringe IVP 10 ml 0100,0900,1700 [facility] Administration Objective Vital Signs/Intake & Output Vital Signs: Vital Signs x48h Temp Pulse Pulse Resp BP BP Pulse Ox 04/29/24 16:15 36.1 C L 43 L 18 162/97 H 04/29/24 15:19 58 L 18 153/103 H 96 04/29/24 14:27 35.6 C L 96 18 200/130 H 95 04/29/24 11:53 69 18 142/84 H 94 04/29/24 09:25 86 18 141/108 H 95 Intake & Output: Intake & Output 04/26/24 04/27/24 04/28/24 04/29/24 23:59 23:59 23:59 23:59 Intake Total 1999 Balance 1999 Weight (kg) 79.5 kg Objective General Appearance: positive Severe distress (Patient holding his abdomen and rocking back and forth in pain) Eyes Bilateral: positive Normal inspection Respiratory: positive Breath sounds nml Cardiovascular: positive Regular rate & rhythm Abdomen: positive Tenderness (Periumbilical and left lower quadrant tenderness) and Guarding Skin: positive Warm and Diaphoresis Extremities: positive No pedal edema Neurologic/Psychiatric: positive Oriented x3 Lab Results 04/29/24 06:22 04/29/24 06:22 Other Labs: Lab Results x24hrs 04/29/24 04/29/24 Range/Units 09:06 06:22 WBC 10.0 (4.8-10.8) x10^3/uL RBC 4.85 (4.70-6.10) 10^6/uL Hgb 16.0 (14.0-18.0) g/dL Hct 45.4 (42.0-52.0) % MCV 93.6 (80.0-94.0) fL MCH 33.0 H (27.0-31.0) pg MCHC 35.2 (32.0-36.0) g/dL RDW 11.9 L (12.0-15.0) % Plt Count 319 (130-450) 10^3/uL MPV 9.4 (7.4-11.4) fL Neut # (Auto) 7.0 H (1.5-6.6) 10^3/uL Lymph # (Auto) 2.0 (1.5-3.5) 10^3/uL [place] # (Auto) 0.7 (0.0-1.0) 10^3/uL Eos # (Auto) 0.3 (0.0-0.7) 10^3/uL Baso # (Auto) 0.0 (0.0-0.1) 10^3/uL Absolute Nucleated RBC 0.00 x10^3/uL Nucleated RBC % 0.0 /100WBC Sodium 136 (135-145) mmol/L Potassium 3.9 (3.5-4.5) mmol/L Chloride 97 L (101-111) mmol/L Carbon Dioxide 29 (21-32) mmol/L Anion Gap 10.0 (6-13) BUN 12 (6-20) mg/dL Creatinine 0.9 (0.6-1.3) mg/dL Estimated GFR (MDRD) 97 (>89) Glucose 146 H (74-104) mg/dL Calcium 9.9 (8.5-10.3) mg/dL Magnesium 2.0 (1.7-2.3) mg/dL Total Bilirubin 0.4 (0.2-1.0) mg/dL AST 64 H (10-42) IU/L ALT 95 H (10-60) IU/L Alkaline Phosphatase 141 H (42-121) IU/L Total Protein 7.8 (6.4-8.9) g/dL Albumin 4.4 (3.2-5.5) g/dL Globulin 3.4 (2.1-4.2) g/dL Albumin/Globulin Ratio 1.3 (1.0-2.2) Lipase 76 (11-82) U/L Urine Color YELLOW Urine Clarity CLEAR (CLEAR) Urine pH 7.5 (5.0-7.5) PH Ur Specific [place] 1.015 (1.002-1.030) Urine Protein TRACE (NEGATIVE) mg/dL Urine Glucose (UA) NEGATIVE (NEGATIVE) mg/dL Urine Ketones NEGATIVE (NEGATIVE) mg/dL Urine Occult Blood NEGATIVE (NEGATIVE) Urine Nitrite NEGATIVE (NEGATIVE) Urine Bilirubin NEGATIVE (NEGATIVE) Urine Urobilinogen 0.2 (NORMAL) (NORMAL) E.U./dL Ur Leukocyte Esterase NEGATIVE (NEGATIVE) Ur Microscopic Review NOT INDICATED Urine Culture Comments NOT INDICATED Ethyl Alcohol < 10.0 mg/dL Assessment/Plan Problem List (1) Acute recurrent pancreatitis: Impression: Patient's ultrasound showed Mild peripancreatic inflammatory changes, with mild peripancreatic fat stranding, and he was experiencing severe periumbilical pain. He has also had two prior hospitalizations for acute pancreatitis. He was placed on bowel rest, and will be given IV normal saline at a rate of 250 mls/hr Q4H. Pain management consists of Dilaudid Smoking Pipe Maker 20 mg/100 ml IV PRN, and morphine sulfate 2 mg IVP Q4H PRN (2) Alcohol abuse: Impression: Patient will be monitored for signs of acute alcohol withdrawal using the CIWA criteria. Will treat patient for withdrawal if needed (3) Crohn disease: Impression: Chronic problem not requiring hospital management at this time
[2024-04-29] MEDS: KETOROLAC 30 MG/ML VIAL IVP ONE (16:59)
[2024-04-29] MEDS: PROCHLORPERAZINE 10 MG/2 ML VIAL IVP PRN (16:59)
[2024-04-29] MEDS: NICOTINE 14 MG PATCH TOP SCH (17:17)
--- NOTE | 2024-04-29 17:17 | HISTORY & PHYSICAL EXAMINATION ---
Chief Complaint <Radha Hurtado - Last Filed: 04/29/24 17:30> Chief Complaint Chief Complaint: Acute pancreatitis History of Present Illness <Jaime Montenegro MD - Last Filed: 04/29/24 17:36> Admitted From Admitted From:: Home History Obtained From Records Reviewed: EMR History obtained from: Patient Exam Limitations: Patient in pain History of Present Illness HPI Comment/Other: Patient is a 33 year old male with a history of alcohol abuse and Crohn's disease who was admitted from the emergency department with acute pancreatitis likely brought on by alcohol abuse. Patient stated he has been hospitalized on two prior occasions for this same condition, but he said the pain is worse this time around. Patient stated the pain started around 8 pm yesterday evening (04/28/24) after he finished eating dinner. The pain continued to worsen and his mother brought him into the ED today. Patient had just been given a dose of ketamine when I first saw him in the ER, and was actively vomiting. He was not able to answer any questions at that time. I saw him again a couple hours later after he had been transferred to his room. Patient was up and walking around the room but was clearly in severe pain. He rated his pain as a 10/10, localized to the periumbilical region. He also stated his left lower abdominal quadrant was tender to palpation. He denied fever, chills, diarrhea. Patient lives with his mother, and his son half of the time. 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 Patient said he currently drinks 3 large cans of a sugary alcoholic beverage every day and smokes marijuana multiple times per day. He denies any other substance use. He has a history of alcohol use, and withdrawals in the past. Documentation review notes that he's had stays in the ICU requiring benzodiazepines and Precedex drips. He states that he is drinking much less than he was before. Previously, he was drinking a bottle of vodka every day. Now he is down to 1-3 tall boys, AKA larger cans of beers every day. At the end of our conversation, patient was holding his abdomen and rocking back and forth. He was diaphoretic and appeared to be in severe pain. Meds/Allgy <Jaime Montenegro MD - Last Filed: 04/29/24 17:36> Home Medications Ambulatory Orders Medication Instructions Recorded Confirmed omeprazole magnesium 20 mg 20 mg PO QDBREAKFAST 30 days #30 12/15/22 07/23/23 tablet,delayed release tabs cyclobenzaprine 10 mg tablet 10 mg PO TID PRN Spasms #20 tabs 11/20/23 Allergies Allergies Allergy/AdvReac Type Severity Reaction Status Date / Time No Known Drug Allergies Allergy Verified 04/29/24 06:21 PFSH <Jaime Montenegro MD - Last Filed: 04/29/24 17:36> Medical History Medical History (Updated 04/29/24 @ 17:35 by Jaime Montenegro MD) Chronic pain Pancreatitis Acute Crohn's disease Surgical History Surgical History Hx of tonsillectomy Social History Social History Smoking Status: Current every day smoker Number of Years Smoked: 12 How many cigarettes a day do you smoke? (20 cigarettes=1 Pk): 20 Do you dip or chew tobacco?: No Do you vape?: Yes Living arrangement: At home Living Condition: With spouse/s.o. Relationship: Level: Independent Do you feel safe in your home environment?: Yes Suffered physical, verbal, emotional, or financial abuse?: No History of Abuse: No Frequency: Daily ETOH Use Details: pt states he drinks a few times a week, however is attempting to quite drinking due to pancreatitis. Substance Use: cannabis (any form) Are you sexually active?: Yes POLST Patient has POLST: No POLST Status: Full Code Review of Systems <Jaime Montenegro MD - Last Filed: 04/29/24 17:36> Constitutional Reports: Fatigue and Poor appetite Eyes Denies: Pain, Irritation, Amaurosis or Blurry vision Ears, nose, mouth, and throat Denies: Hearing loss, Hearing aids, Tinnitus, Change in hearing, Difficulty swallowing, Neck pain or Throat swelling Cardiovascular Denies: Irregular heart rate, chest pain, palpitations, edema, swelling of feet/ankles, Syncope or shortness of breath with exertion Respiratory Denies: Shortness of breath, Cough or Sputum production Gastrointestinal Reports: Abdominal pain, Nausea, Vomiting and Heartburn; Denies: Diarrhea, Constipation, Bloating or Difficulty swallowing Genitourinary Denies: Painful urination, Flank pain, Incontinence, Urinary frequency or Urinary urgency Musculoskeletal Reports: Muscle pain and Muscle aches; Denies: Back pain, Neck pain, Extremity pain, Extremity swelling or Joint pain Integumentary/Breast Denies: Rash, Itching, Dryness, Skin pain, Skin tenderness or Skin swelling Neurological Reports: Headache; Denies: General weakness, Focal weakness or Weakness in extremities Psychiatric Reports: Other (substance use - alcohol, tobacco ); Denies: Depression, Anxiety, Loss of interest or Irritability Endocrine Reports: Fatigue; Denies: Excessive thirst or Polyphagia Hematologic/Lymphatic Denies: Anemia, Easy bruising or Petechiae Allergic/Immunologic Denies: Hives, Throat swelling or Facial swelling <Radha Hurtado - Last Filed: 04/29/24 17:30> Constitutional Reports: Diaphoresis; Denies: Fever or Chills <Radha Hurtado - Last Filed: 04/29/24 17:30> Prior Level of Functionality: Independent Exam <Jaime Montenegro MD - Last Filed: 04/29/24 17:36> [facility] head/scalp atraumatic Eyes EOMs intact bilaterally, conjunctivae normal and no scleral icterus Respiratory no wheezes and no rales Cardiovascular heart rate abnormal (bradycardic), regular rhythm noted, no gallop, no rub, no murmur and no edema Gastrointestinal Abdomen tender to palpation in the periumbilcal region and lower left quadrant. Patient was voluntary guarding. Genitourinary no CVA tenderness Extremities no tenderness Neurology no movement abnormality noted and no focal motor deficit noted Skin no rash <Radha Hurtado - Last Filed: 04/29/24 17:30> Constitutional Warm, diaphoretic, in severe distress HENMT normocephalic Eyes PERRL Neck/C-Spine visual inspection normal Chest inspection of chest normal Respiratory breath sounds equal bilaterally and normal respiratory effort Cardiovascular normal heart rate noted Gastrointestinal Abdomen tender to palpation in the periumbilcal region and lower left quadrant. Patient was guarding abdomen, was rigid during exam Extremities normal to inspection Neurology brake reliner II-XII intact Psychiatry mental status grossly normal and oriented x3 Skin skin color normal Image Pain in periumbilical region Conclusion/Plan <Jaime Montenegro MD - Last Filed: 04/29/24 17:36> Problem List (1) Acute recurrent pancreatitis: Plan: Patient's CT showed mild peripancreatic inflammatory changes, with mild peripancreatic fat stranding, and he was experiencing severe periumbilical pain. He has also had two prior hospitalizations for acute pancreatitis. Will place patient on bowel rest (strict NPO status). Continue IV normal saline at a rate of 250 mls/hr. Pain management consists of Dilaudid HEAVY DUTY TRUCK MECHANIC 20 mg/100 ml IV PRN. Zofran, compazine as antiemetics at this time. (2) Elevated LFTs: Plan: Attributed to alcohol use. Continue to trend. (3) Alcohol use: Plan: CIWA protocol in place. Will start multivitamin, thiamine, folic acid when able to swallow. (4) Tobacco use: Plan: Nicotine patch ordered. (5) Crohn disease: Plan: Not in active flare up; continue to monitor. Qualifiers: Gastrointestinal tract location: unspecified location Digestive disease complication type: without complication Qualified Code(s): K50.90 - Crohn's disease, unspecified, without complications Lab Results Lab results reviewed: Yes 04/29/24 06:22 04/29/24 06:22 Diagnostic Imaging Results Diagnostic Imaging Results: positive Final report reviewed EKG Results EKG Interpreted Independently: Yes <Radha Hurtado - Last Filed: 04/29/24 17:30> Problem List (1) Acute recurrent pancreatitis: (2) Elevated LFTs: (3) Alcohol use: (4) Tobacco use: (5) Crohn disease: Core Measures <Jaime Montenegro MD - Last Filed: 04/29/24 17:36> Anticipated LOS I expect patient to be DC'd or transferred within 96 hours.: Yes Issues Hospital Issues and Management Plan: None anticipated. DVT/VTE - Prophylaxis VTE/DVT Device ordered at admit?: Yes VTE/DVT Prophylaxis med ordered at admit?: Yes Stroke - Rehab Assessment Rehab services assessment to be ordered?: No AMI - Statin at Admit Aspirin Prescribed on Admit: No Not Ordered - Medical Reason: Not indicated
[2024-04-29] MEDS: HYDROmorphone PCA 20MG/100ML IV PRN (17:18)
[2024-04-29 17:51] LABS: ALBUMIN 4.3 g/dL (3.2-5.5); ALBUMIN/GLOBULIN RATIO 1.4 (1.0-2.2); BILIRUBIN,TOTAL 0.7 mg/dL (0.2-1.0); CALCIUM 9.2 mg/dL (8.5-10.3); CREATININE 0.7 mg/dL (0.6-1.3); POTASSIUM 3.7 mmol/L (3.5-4.5); TOTAL PROTEIN 7.3 g/dL (6.4-8.9)
[2024-04-29] MEDS: HALOPERIDOL 5 MG/ML VIAL IVP ONE (20:16)
[2024-04-29] MEDS ORDERED: NALOXONE 0.4 MG/ML VIAL IVP PRN (21:39)
[2024-04-29] MEDS: SODIUM CHLORIDE 0.9% 500 ML IV ONE (21:42)
[2024-04-30] MEDS: LORazepam 2 MG/ML VIAL IVP PRN (02:52)
[2024-04-30 06:06] LABS: HCT - HEMATOCRIT 42.5 % (42.0-52.0); HGB - HEMOGLOBIN 14.4 g/dL (14.0-18.0); MEAN CORPUSCULAR HEMOGLOBIN 33.1 pg (27.0-31.0); MEAN CORPUSCULAR HGB CONC 33.9 g/dL (32.0-36.0); MEAN CORPUSCULAR VOLUME 97.7 fL (80.0-94.0); RED BLOOD COUNT 4.35 10^6/uL (4.70-6.10); RED CELL DISTRIBUTION WIDTH 11.7 % (12.0-15.0); WHITE BLOOD COUNT 13.4 x10^3/uL (4.8-10.8)
[2024-04-30 06:23] LABS: CALCIUM 8.4 mg/dL (8.5-10.3); CREATININE 0.6 mg/dL (0.6-1.3); MAGNESIUM 1.7 mg/dL (1.7-2.3); POTASSIUM 3.8 mmol/L (3.5-4.5)
[2024-04-30] MEDS: PANTOPRAZOLE 40 MG TABLET PO SCH (06:36)
[2024-04-30] MEDS: ENOXAPARIN 40 MG/0.4 ML SYRINGE SUBQ SCH (08:06)
--- NOTE | 2024-04-30 11:42 | PHARMACY PROGRESS NOTE ---
Best Possible Medication History Admit Date and Time: 04/29/24 1357 Home Medications Medication Instructions Recorded Confirmed Type omeprazole magnesium 20 mg 20 mg PO QDBREAKFAST 30 days #30 12/15/22 04/30/24 Rx tablet,delayed release tabs cyclobenzaprine 10 mg tablet 10 mg PO TID PRN Spasms #20 tabs 11/20/23 04/30/24 Rx Processed by: Pharmacy Medications reviewed in ED?: No Medication History completed: Yes Patient Interview: Completed Secondary Source(s): Pharmacy records and Insurance records [facility] Statement: As the person ultimately responsible for medication therapy, providers are able to order a medication from an existing home medication list in [facility] via the "Reconcile Routine" prior to Confirmation of that medication by student support advisor. Such practice is discouraged except when the physician, in their clinical judgment, deems that a medical need exists for a medication without regard to previous use.
--- NOTE | 2024-04-30 12:09 | PROVIDER PROGRESS NOTE ---
Subjective Subjective Subjective: This morning, patient feels improved. He still has some pain, but now rates it as a 5 out of 10 as opposed to 10 out of 10. He denies any nausea. He has had no episodes of emesis. His appetite is returning. He does not feel like he is withdrawing from alcohol either. Denies any fevers or chills. Current Medications Current Medications Current Medications: Current Medications Generic Name Dose Route Start Last Admin Trade Name Freq PRN Reason Stop Dose Admin Enoxaparin Sodium 40 mg 04/30/24 09:00 04/30/24 08:06 Enoxaparin 40 Mg/0.4 Ml Syringe SUBQ 40 mg DAILY SAMANTHA Administration Hydromorphone HCl 0 mg 04/29/24 16:34 04/29/24 21:45 Hydromorphone Sponge Packer 20mg/100ml IV 20 mg PRN PRN Administration Severe Pain (Level 7-10) Protocol Sodium Chloride 1,000 mls @ 250 mls/hr 04/29/24 14:00 04/30/24 09:09 Normal Saline 0.9% IV 250 mls/hr .Q4H SAMANTHA Administration Lorazepam 0.5 mg 04/29/24 21:39 04/30/24 02:52 Lorazepam 2 Mg/Ml Vial IVP 0.5 mg Q2H PRN Administration Anxiety Naloxone HCl 0.4 mg 04/29/24 21:39 Naloxone 0.4 Mg/Ml Vial IVP 05/27/24 21:38 ONCE PRN PER PHYSICIAN ORDER Nicotine 1 patch 04/29/24 17:30 04/30/24 08:07 Nicotine 14 Mg Patch TOP 1 patch DAILY SAMANTHA Administration Ondansetron HCl 4 mg 04/29/24 16:02 Ondansetron Odt 4 Mg Tablet TL Q6HR PRN Nausea / Vomiting Ondansetron HCl 4 mg 04/29/24 16:02 Ondansetron 4 Mg/2 Ml Vial IVP Q6HR PRN Nausea / Vomiting Pantoprazole Sodium 40 mg 04/30/24 07:00 04/30/24 06:36 Pantoprazole 40 Mg Tablet PO 40 mg QDAC SAMANTHA Administration Prochlorperazine Edisylate 10 mg 04/29/24 16:22 04/29/24 16:59 Prochlorperazine 10 Mg/2 Ml Vial IVP 10 mg Q6HR PRN Administration Nausea / Vomiting Sodium Chloride 10 ml 04/29/24 16:02 Sodium Chloride Flush 0.9% 10 Ml Syringe IVP PRN PRN NEEDED PER PROVIDER ORDERS Sodium Chloride 10 ml 04/29/24 17:00 04/30/24 08:08 Sodium Chloride Flush 0.9% 10 Ml Syringe IVP 10 ml 0100,0900,1700 SAMANTHA Administration Objective Vital Signs/Intake & Output Reviewed Vital Signs: Yes Vital Signs: Vital Signs x48h Temp Pulse Resp BP Pulse Ox 04/30/24 10:00 20 04/30/24 08:16 97.7 F 59 L 18 165/89 H 97 04/30/24 06:40 22 04/30/24 05:06 20 04/30/24 04:25 97.7 F 61 18 173/98 H 98 Intake & Output: Intake & Output 04/27/24 04/28/24 04/29/24 04/30/24 23:59 23:59 23:59 23:59 Intake Total 4755 / 4755 2487 / 2487 Output Total 400 / 400 600 / 600 Balance 4355 / 4355 1887 / 1887 Weight (kg) 79.5 kg Objective General Appearance: positive No acute distress and Alert; negative Anxious Eyes Bilateral: positive Normal inspection, PERRL and EOMI ENT: positive ENT inspection nml, Pharynx nml and No signs of dehydration Neck: positive Nml inspection, Thyroid nml, No JVD and Trachea midline Respiratory: positive Chest non-tender, No respiratory distress and Breath sounds nml; negative Wheezes, Rales or Rhonchi Cardiovascular: positive Regular rate & rhythm, No murmur and No gallop; negative Tachycardia, Bradycardia, Systolic murmur or Diastolic murmur Abdomen: positive No distention, Tenderness (epigastric region) and Guarding (voluntary guarding noted on palpation); negative Rebound, Hepatomegaly, Splenomegaly or Mass Back: positive Nml inspection; negative CVA tenderness (R) or CVA tenderness (L) Skin: positive Color nml, No rash, Warm and Dry Extremities: positive Non-tender, Full ROM, Nml appearance and No pedal edema Neurologic/Psychiatric: positive Oriented x3 and Mood/affect nml Lab Results 04/30/24 05:36 04/30/24 05:36 Other Labs: Lab Results x24hrs 04/30/24 04/29/24 04/29/24 Range/Units 05:36 16:10 15:20 WBC 13.4 H (4.8-10.8) x10^3/uL RBC 4.35 L (4.70-6.10) 10^6/uL Hgb 14.4 (14.0-18.0) g/dL Hct 42.5 (42.0-52.0) % MCV 97.7 H (80.0-94.0) fL MCH 33.1 H (27.0-31.0) pg MCHC 33.9 (32.0-36.0) g/dL RDW 11.7 L (12.0-15.0) % Plt Count 284 (130-450) 10^3/uL MPV 10.0 (7.4-11.4) fL Sodium 135 Cancelled 139 (135-145) mmol/L Potassium 3.8 Cancelled 3.7 (3.5-4.5) mmol/L Chloride 104 Cancelled 104 (101-111) mmol/L Carbon Dioxide 20 L Cancelled 25 (21-32) mmol/L Anion Gap 11.0 Cancelled 10.0 (6-13) BUN 10 Cancelled 12 (6-20) mg/dL Creatinine 0.6 Cancelled 0.7 (0.6-1.3) mg/dL Estimated GFR (MDRD) 155 Cancelled 130 (>89) Glucose 145 H Cancelled 134 H (74-104) mg/dL Calcium 8.4 L Cancelled 9.2 (8.5-10.3) mg/dL Magnesium 1.7 (1.7-2.3) mg/dL Total Bilirubin Cancelled 0.7 (0.2-1.0) mg/dL AST Cancelled 44 H (10-42) IU/L ALT Cancelled 78 H (10-60) IU/L Alkaline Phosphatase Cancelled 139 H (42-121) IU/L Total Protein Cancelled 7.3 (6.4-8.9) g/dL Albumin Cancelled 4.3 (3.2-5.5) g/dL Globulin Cancelled 3.0 (2.1-4.2) g/dL Albumin/Globulin Ratio Cancelled 1.4 (1.0-2.2) Lipase Cancelled 211 H (11-82) U/L Diagnostic Imaging Diagnostic Imaging Results: positive Final report reviewed Assessment/Plan Problem List (1) Acute recurrent pancreatitis: Impression: Patient has typical epigastric pain, CT abdomen/pelvis shows signs of acute pancreatitis. Patient's epigastric pain is improving. Continue SUPERVISING FIRE MARSHAL controlled Dilaudid pump. Will switch to Dilaudid pushes by this evening. If patient's pain has improved, and he is using his pain medications less, will advance to clear liquids. Likely will happen tomorrow, continue bowel rest at this time. Continue aggressive IV fluid resuscitation. (2) Elevated LFTs: Impression: Likely due to longstanding alcohol use. Continue to trend. (3) Alcohol use: Impression: CIWA protocol in place, patient not in acute alcohol withdrawal at this time. (4) Tobacco use: Impression: Continued nicotine patch. 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 (5) Crohn disease: Impression: Not in acute flare. Follows with a senior specialist, in talks about starting a new medication with them. Qualifiers: Digestive disease complication type: without complication G astrointestinal tract location: unspecified location Qualified Code(s): K50.90 - Crohn's disease, unspecified, without complications
[2024-04-30] MEDS ORDERED: KETOROLAC 15 MG/ML VIAL IVP PRN (18:49)
[2024-05-01 05:45] LABS: HCT - HEMATOCRIT 37.6 % (42.0-52.0); MEAN CORPUSCULAR HEMOGLOBIN 32.9 pg (27.0-31.0); MEAN CORPUSCULAR HGB CONC 34.6 g/dL (32.0-36.0); MEAN CORPUSCULAR VOLUME 95.2 fL (80.0-94.0); MEAN PLATELET VOLUME 10.2 fL (7.4-11.4); RED BLOOD COUNT 3.95 10^6/uL (4.70-6.10); RED CELL DISTRIBUTION WIDTH 11.7 % (12.0-15.0); WHITE BLOOD COUNT 8.8 x10^3/uL (4.8-10.8)
[2024-05-01 06:05] LABS: CALCIUM 8.4 mg/dL (8.5-10.3); CREATININE 0.6 mg/dL (0.6-1.3); MAGNESIUM 1.6 mg/dL (1.7-2.3); POTASSIUM 3.6 mmol/L (3.5-4.5)
--- NOTE | 2024-05-01 10:11 | PROVIDER PROGRESS NOTE ---
Subjective Subjective Subjective: This morning, patient feels better. He is no longer using the Dilaudid pump as of early this morning. His appetite has returned. He ate some Jell-O, as well as drink some fluids this morning without any nausea or vomiting. His abdominal pain has improved. Will trial a GI soft diet for lunch. Current Medications Current Medications Current Medications: Current Medications Generic Name Dose Route Start Last Admin Trade Name Freq PRN Reason Stop Dose Admin Enoxaparin Sodium 40 mg 04/30/24 09:00 05/01/24 08:18 Enoxaparin 40 Mg/0.4 Ml Syringe SUBQ Not Given DAILY SAMANTHA Hydromorphone HCl 0 mg 04/29/24 16:34 04/29/24 21:45 Hydromorphone Erp Consultant 20mg/100ml IV 20 mg PRN PRN Administration Severe Pain (Level 7-10) Protocol Hydromorphone HCl 0.5 mg 04/30/24 18:49 Hydromorphone 0.5 Mg/0.5 Ml Syringe IVP Q4H PRN Severe Pain (Level 7-10) Sodium Chloride 1,000 mls @ 100 mls/hr 04/29/24 14:00 05/01/24 08:11 Normal Saline 0.9% IV 100 mls/hr .Q10H SAMANTHA Infusion Ketorolac Tromethamine 15 mg 04/30/24 18:49 Ketorolac 15 Mg/Ml Vial IVP 05/05/24 18:48 Q6H PRN PAIN 1-4 Lorazepam 0.5 mg 04/29/24 21:39 04/30/24 02:52 Lorazepam 2 Mg/Ml Vial IVP 0.5 mg Q2H PRN Administration Anxiety Naloxone HCl 0.4 mg 04/29/24 21:39 Naloxone 0.4 Mg/Ml Vial IVP 05/27/24 21:38 ONCE PRN PER PHYSICIAN ORDER Nicotine 1 patch 04/29/24 17:30 05/01/24 08:18 Nicotine 14 Mg Patch TOP 1 patch DAILY SAMANTHA Administration Ondansetron HCl 4 mg 04/29/24 16:02 Ondansetron Odt 4 Mg Tablet TL Q6HR PRN Nausea / Vomiting Ondansetron HCl 4 mg 04/29/24 16:02 Ondansetron 4 Mg/2 Ml Vial IVP Q6HR PRN Nausea / Vomiting Pantoprazole Sodium 40 mg 02/14/25 07:00 05/01/24 05:44 Pantoprazole 40 Mg Tablet PO 40 mg QDAC SAMANTHA Administration Prochlorperazine Edisylate 10 mg 04/29/24 16:22 04/29/24 16:59 Prochlorperazine 10 Mg/2 Ml Vial IVP 10 mg Q6HR PRN Administration Nausea / Vomiting Sodium Chloride 10 ml 04/29/24 16:02 Sodium Chloride Flush 0.9% 10 Ml Syringe IVP PRN PRN NEEDED PER PROVIDER ORDERS Sodium Chloride 10 ml 04/29/24 17:00 05/01/24 08:18 Sodium Chloride Flush 0.9% 10 Ml Syringe IVP Not Given 0100,0900,1700 [facility] Objective Vital Signs/Intake & Output Reviewed Vital Signs: Yes Vital Signs: Vital Signs x48h Temp Pulse Resp BP Pulse Ox 05/01/24 08:20 97.9 F 75 22 141/87 H 95 05/01/24 05:47 20 05/01/24 05:15 97.9 F 72 24 158/97 H 96 Intake & Output: Intake & Output 04/28/24 04/29/24 04/30/24 05/01/24 23:59 23:59 23:59 23:59 Intake Total 4755 / 4755 5633 / 5633 2467 / 2467 Output Total 400 / 400 2350 / 2350 2900 / 2900 Balance 4355 / 4355 3283 / 3283 -433 / -433 Weight (kg) 79.5 kg Objective General Appearance: positive No acute distress and Alert; negative Anxious Eyes Bilateral: positive Normal inspection, PERRL and EOMI ENT: positive ENT inspection nml, Pharynx nml and No signs of dehydration Neck: positive Nml inspection, Thyroid nml, No JVD and Trachea midline Respiratory: positive Chest non-tender, No respiratory distress and Breath sounds nml; negative Wheezes, Rales or Rhonchi Cardiovascular: positive Regular rate & rhythm, No murmur and No gallop; negative Tachycardia, Bradycardia, Systolic murmur or Diastolic murmur Abdomen: positive No distention, Tenderness (epigastric region) and Guarding (voluntary guarding noted on palpation); negative Rebound, Hepatomegaly, Splenomegaly or Mass Back: positive Nml inspection; negative CVA tenderness (R) or CVA tenderness (L) Skin: positive Color nml, No rash, Warm and Dry Extremities: positive Non-tender, Full ROM, Nml appearance and No pedal edema Neurologic/Psychiatric: positive Oriented x3 and Mood/affect nml Lab Results 05/01/24 05:15 05/01/24 05:15 Other Labs: Lab Results x24hrs 05/01/24 Range/Units 05:15 WBC 8.8 (4.8-10.8) x10^3/uL RBC 3.95 L (4.70-6.10) 10^6/uL Hgb 13.0 L (14.0-18.0) g/dL Hct 37.6 L (42.0-52.0) % MCV 95.2 H (80.0-94.0) fL MCH 32.9 H (27.0-31.0) pg MCHC 34.6 (32.0-36.0) g/dL RDW 11.7 L (12.0-15.0) % Plt Count 237 (130-450) 10^3/uL MPV 10.2 (7.4-11.4) fL Sodium 135 (135-145) mmol/L Potassium 3.6 (3.5-4.5) mmol/L Chloride 103 (101-111) mmol/L Carbon Dioxide 21 (21-32) mmol/L Anion Gap 11.0 (6-13) BUN 7 (6-20) mg/dL Creatinine 0.6 (0.6-1.3) mg/dL Estimated GFR (MDRD) 155 (>89) Glucose 80 (74-104) mg/dL Calcium 8.4 L (8.5-10.3) mg/dL Magnesium 1.6 L (1.7-2.3) mg/dL Diagnostic Imaging Diagnostic Imaging Results: positive Final report reviewed Assessment/Plan Problem List (1) Acute recurrent pancreatitis: Impression: Patient has typical epigastric pain, CT abdomen/pelvis shows signs of acute pancreatitis. Patient's epigastric pain is improving. Dilaudid, Toradol, Assawoman added as needed. Requiring less pain medications. Tolerated clear liquids well; advance to GI soft diet for lunch. Will decrease IVF slowly; once able to eat, will d/c. If requiring less IV pain control by tomorrow, will discharge. (2) Elevated LFTs: Impression: Likely due to longstanding alcohol use. Continue to trend. (3) Alcohol use: Impression: CIWA protocol in place, patient not in acute alcohol withdrawal at this time. (4) Tobacco use: Impression: Continued nicotine patch. 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 (5) Crohn disease: Impression: Not in acute flare. Follows with a brake coupler dinkey, in talks about starting a new medication with them. Qualifiers: Digestive disease complication type: without complication G astrointestinal tract location: unspecified location Qualified Code(s): K50.90 - Crohn's disease, unspecified, without complications
[2024-05-01] MEDS: HYDROmorphone 0.5 MG/0.5 ML SYRINGE IVP PRN (11:57)
[2024-05-01] MEDS: HYDROcod/ACETAM 5/325 MG TABLET PO PRN (13:12)
--- NOTE | 2024-05-01 15:32 | Discharge Summary ---
"Discharge Summary Admit Date: 04/29/24 Discharge Date: 05/01/24 Discharging Provider: Dr. Jaime Montenegro Primary Care Provider: Jorge Whitt MD Code Status: Attempt Resuscitation Discharge Facility Name: Home DIAGNOSES Admission Diagnoses: Acute recurrent pancreatitis Elevated LFTs Alcohol use Tobacco use Crohn disease Discharge Diagnoses with Status of Each Condition: Acute recurrent pancreatitisresolving. Patient is able to tolerate p.o. intake. Minimal pain use. Will send home with Motrin and [place] to be used sparingly only if needed. Advised abstain from alcohol. Elevated LFTsadvised to follow-up with primary care provider in outpatient setting to trend, and possibly get an abdominal ultrasound. Alcohol useadvised to abstain. Tobacco useadvised abstain. Crohn's diseasepatient follows up that knitter machine in the outpatient setting. Plans to initiate new treatment soon. HPI History of Present Illness: Patient is a 33-year-old male with a history of Crohn's disease, recurrent episodes of alcoholic pancreatitis who presents with severe abdominal pain. Yesterday, after dinner, and after he had a alcoholic drink (a Tall Boy) he started experiencing the pain. He describes it as sharp, 10 out of 10 with radiation to the back. He states it is typical of his pancreatic episodes. When he was admitted, he was hypertensive, bradycardic, saturating well on room air. Physical exam shows tenderness to palpation in epigastric region; no guarding and rigidity noted. Lab work indicates normal lipase level, elevated AST, ALT, ALP. CT abdomen/pelvis showed findings suggestive of acute pancreatitis. He was started on IV fluids, pain control, n.p.o. Will do a Dilaudid BEVELING MACHINE OPERATOR analgesic pump. CONSULTS | PROCEDURES Consultations: - Procedures: CT abdomen/pelvis HOSPITAL COURSE Hospital Course: Patient is a 33-year-old male with a history of recurrent alcoholic pancreatitis who presented with severe epigastric pain. Lipase was within normal limits. CT abdomen/pelvis does show findings suggestive of acute pancreatitis. He was made n.p.o., given IV fluids, as well as pain control. His pain continued to improve. His diet was advanced from n.p.o. to clear liquids to GI soft and he tolerated it well. Plans to discharge home. Advised to advance diet sparingly. Will send him home with some Motrin and [place] only if absolutely needed. He had a slight elevation in his LFTs, and he was advised to follow-up with his primary care provider in the outpatient setting for an abdominal ultrasound, as well as a repeat check. ALLERGIES Allergies Allergy/AdvReac Type Severity Reaction Status Date / Time No Known Drug Allergies Allergy Verified 04/29/24 06:21 MEDICATIONS Ambulatory Orders Medication Instructions Recorded Confirmed omeprazole magnesium 20 mg 20 mg PO QDBREAKFAST 30 days #30 12/15/22 04/30/24 tablet,delayed release tabs cyclobenzaprine 10 mg tablet 10 mg PO TID PRN Spasms #20 tabs 11/20/23 04/30/24 hydrocodone 5 mg-acetaminophen 325 1 tab PO Q4HR PRN Moderate Pain 05/01/24 mg tablet (Level 4-6) #7 tabs ibuprofen 800 mg tablet 800 mg PO Q8H #14 tabs 05/01/24 PHYSICAL EXAM AT DISCHARGE General Appearance: positive No acute distress and Alert; negative Anxious Eyes Bilateral: positive Normal inspection, PERRL and EOMI ENT: positive ENT inspection nml, Pharynx nml and No signs of dehydration Neck: positive Nml inspection, Thyroid nml and No JVD Respiratory: positive Chest non-tender and No respiratory distress; negative Wheezes, Rales or Rhonchi Cardiovascular: positive Regular rate & rhythm, No murmur and No gallop; negative Extrasystoles or Diastolic murmur Peripheral Pulses: positive 2+ Abdomen: positive No distention and Tenderness (mild tenderness to palpation of epigastric region); negative Hepatomegaly, Splenomegaly or Mass Back: positive Nml inspection; negative CVA tenderness (R) or CVA tenderness (L) Skin: positive Color nml, No rash, Warm and Dry Extremities: positive Non-tender, Full ROM and Nml appearance Neurologic/Psychiatric: positive Oriented x3 and Mood/affect nml LABS 05/01/24 05:15 05/01/24 05:15 DIAGNOSTIC IMAGING Diagnostic Imaging Results: Final report reviewed QUALITY (Female Hip Fx Only) Was patient sent home on osteoporosis medication?: No FOLLOW UP Follow Up: Follow up with primary care provider. TIME SPENT Time Spent in Discharge (Minutes): 35 Discharge Plan Discharge Patient Disposition: Home, Self Care Condition: Stable Prescriptions: New hydrocodone-acetaminophen 5-325 mg Tablet 1 tab PO Q4HR PRN (Reason: Moderate Pain (Level 4-6)) Qty: 7 0RF ibuprofen 800 mg tablet 800 mg PO Q8H Qty: 14 0RF Continued omeprazole magnesium 20 MG tablet,delayed release (DR/EC) 20 mg PO QDBREAKFAST 30 Days Qty: 30 0RF cyclobenzaprine 10 MG tablet 10 mg PO TID PRN (Reason: Spasms) Qty: 20 0RF Diet: Soft Health Concerns: You came in because you were having abdominal pain. You were found to have acute pancreatitis. We gave you lots of IV fluid rehydration, and made sure that you got some bowel rest, and started you on some pain medications. We slowly advanced your diet, and it looks like you are tolerating it well without any nausea or vomiting. As such, we are discharging you home. Please take it easy at home with the foods you decide to eat. Please continue to abstain from drinking alcohol as this will trigger another episode. I have also sent 2 types of pain medications to your pharmacy, please use sparingly in the days to come. Your liver numbers were a little high when you first got here. I want you to follow-up with your primary care provider about this, so they can recheck it in the outpatient setting. We are glad you are feeling better, thank you for allowing us to take care of you. Print Language: Tajik Patient Instructions: Pancreatitis Acute Dc, ED Diet Soft, ED Diet [place] Ch Stand Alone Forms: PCP List Follow-up Care: Ania Barrett MD [Primary Care Provider] -"
[2024-05-01 15:49] VITALS: TEMP 97.7; O2SAT 99
[2024-05-01 16:43] VITALS: BP 146/93
== END 2024-05-01 16:45 | disposition home or self-care (01) ==
LOC: ED 06:02 → MS2 06:02
PROVIDERS: ADMIT Internal Medicine; ATTEND Internal Medicine

== ENCOUNTER 2024-07-27 04:30 | Observation (INO) ==
--- NOTE | 2024-07-27 04:38 | ED Physician Documentation ---
PD HPI ABD PAIN Stated complaint Stated Complaint: ABD PX Chief complaint Chief Complaint: Abd Pain Additional information Additional information: HPI patient. Patient complains of rapid onset abdominal pain across upper abdomen but most pronounced in his epigastrium, radiating to his back, associated with nausea and vomiting. Onset of pain approximately 8 PM last night while at home at rest. Patient says the pain is very similar to his previous episodes of pancreatitis which have been attributed to alcohol intake. Patient says he drink alcohol through the weekend, last alcoholic drink was noon yesterday. Denies hematemesis, hematochezia, melena. No exacerbating nor ameliorating factors Meds/Allgy Home Medications Ambulatory Orders Medication Instructions Recorded Confirmed omeprazole magnesium 20 mg 20 mg PO QDBREAKFAST 30 day s #30 12/15/22 04/30/24 tablet,delayed release tabs cyclobenzaprine 10 mg tablet 10 mg PO TID PRN Spasms # 20 tabs 11/20/23 04/30/24 hydrocodone 5 mg-acetaminophen 325 1 tab PO Q4HR PRN M oderate Pain 05/01/24 mg tablet (Level 4-6) #7 tabs ibuprofen 800 mg tablet 800 mg PO Q8H #14 tabs 05/01 Allergies Allergies Allergy/AdvReac Type Severity Reaction Status Date / Time No Known Drug Allergies Allergy Verified 07/27/24 04:44 PFSH Active Problems All Active Problems (Updated 05/02/24 @ 00:01 by ) Tobacco use (Acute) Alcohol use (Acute) Elevated LFTs (Acute) Medical History Medical History (Updated 05/02/24 @ 00:01 by ) Chronic pain Pancreatitis Acute Crohn's disease Surgical History Surgical History Hx of tonsillectomy Social History Social History Smoking Status: Current every day smoker Number of Years Smoked: 12 How many cigarettes a day do you smoke? (20 cigarettes=1 Pk): 20 Do you dip or chew tobacco?: No Do you vape?: Yes Living arrangement: At home Living Condition: With spouse/s.o. Relationship: Level: Independent Do you feel safe in your home environment?: Yes Suffered physical, verbal, emotional, or financial abuse?: No History of Abuse: No Frequency: Daily ETOH Use Details: pt states he drinks a few times a week, however is attempting to quite drinking due to pancreatitis. Substance Use: cannabis (any form) Are you sexually active?: Yes POLST Patient has POLST: No POLST Status: Full Code Exam Exam Vital Signs: Vital Signs x48h Temp Pulse Resp BP Pulse Ox O2 Flow Rate 07/27/24 08:00 75 14 157/85 H 95 07/27/24 07:00 89 14 158/92 H 96 07/27/24 06:42 52 L 16 138/92 H 98 2 07/27/24 06:32 52 L 18 154/95 H 98 2 07/27/24 06:14 48 L 20 165/85 H 100 2 07/27/24 06:00 50 L 22 163/104 H 100 2 07/27/24 06:00 56 L 98 07/27/24 05:44 69 98 07/27/24 05:29 61 99 07/27/24 05:14 67 98 2 07/27/24 04:59 96 2 07/27/24 04:37 36.6 C 110 H 28 H 146/118 H 98 Constitutional normal general appearance, distress noted (obvious severe painful distress) (severe) and alert Respiratory breath sounds equal bilaterally and clear to auscultation bilaterally Cardiovascular heart rate abnormal (tachycardic) and regular rhythm noted Gastrointestinal abdomen soft to palpation, tender to palpation (moderate), nondistended and normoactive bowel sounds TTP across upper abdomen, greatest in epigastrium with voluntary guarding but no rebound Psychiatry oriented x3 and cooperative Skin skin color normal Results Vitals Vitals: Vital Signs - 24 hr 07/27/24 04:37 07/27/24 04:59 07/27/24 05:05 Temperature 36.6 C Temperature Source Oral Pulse Rate 110 H Respiratory Rate 28 H Blood Pressure 146/118 H O2 Saturation 98 96 O2 Source Room air Nasal cannula If not protocol: Oxygen Flow, liters/minute 2 Pain Intensity 10 10 07/27/24 05:14 07/27/24 05:29 07/27/24 05:44 Temperature Temperature Source Pulse Rate 67 61 69 Respiratory Rate Blood Pressure O2 Saturation 98 99 98 O2 Source Nasal cannula Nasal cannula Nasal cannula If not protocol: Oxygen Flow, liters/minute 2 Pain Intensity 07/27/24 06:00 07/27/24 06:00 07/27/24 06:10 Temperature Temperature Source Pulse Rate 56 L 50 L Respiratory Rate 22 Blood Pressure 163/104 H O2 Saturation 98 100 O2 Source Nasal cannula Nasal cannula If not protocol: Oxygen Flow, liters/minute 2 Pain Intensity 8 8 07/27/24 06:14 07/27/24 06:28 07/27/24 06:32 Temperature Temperature Source Pulse Rate 48 L 52 L Respiratory Rate 20 18 Blood Pressure 165/85 H 154/95 H O2 Saturation 100 98 O2 Source Nasal cannula Nasal cannula If not protocol: Oxygen Flow, liters/minute 2 2 Pain Intensity 8 07/27/24 06:42 07/27/24 07:00 07/27/24 07:10 Temperature Temperature Source Pulse Rate 52 L 89 Respiratory Rate 16 14 Blood Pressure 138/92 H 158/92 H O2 Saturation 98 96 O2 Source Nasal cannula Room air If not protocol: Oxygen Flow, liters/minute 2 Pain Intensity 6 8 07/27/24 08:00 07/27/24 08:16 Temperature Temperature Source Pulse Rate 75 Respiratory Rate 14 Blood Pressure 157/85 H O2 Saturation 95 O2 Source Room air If not protocol: Oxygen Flow, liters/minute Pain Intensity 9 9 Oxygen O2 Source Room air Labs Labs: Laboratory Tests 07/27/24 05:02 WBC 12.7 H RBC 5.17 Hgb 16.8 Hct 48.5 MCV 93.8 MCH 32.5 H MCHC 34.6 RDW 12.1 Plt Count 335 MPV 10.0 Neut # (Auto) 8.8 H Lymph # (Auto) 2.8 [place] # (Auto) 0.8 Eos # (Auto) 0.3 Baso # (Auto) 0.0 Absolute Nucleated RBC 0.00 Nucleated RBC % 0.0 Sodium 135 Potassium 4.6 H Chloride 93 L Carbon Dioxide 28 Anion Gap 14.0 H BUN 13 Creatinine 0.9 Estimated GFR (MDRD) 97 Glucose 338 H Calcium 10.7 H Total Bilirubin 0.8 AST 51 H ALT 86 H Alkaline Phosphatase 154 H Total Protein 8.4 Albumin 4.9 Globulin 3.5 Albumin/Globulin Ratio 1.4 Lipase 108 H Rads (name of study) CT A/P with IV contrast: Relevant Findings:: Prelim report reviewed and See rad report PD Medical Decision Making ED course Complexity details: reviewed old records, reviewed results, re-evaluated patient, considered differential and d/w patient ED course: H+P s/o pancreatitis. Mild leukocytosis (WBC 12.7) on otherwise unremarkable CBC. Minimally elevated AST, ALT. Normal bilirubin. Lipase 108. Hyperglycemia (glucose 338). CT A/P with IV contrast interpreted by radiologist as "extensive peripancreatic inflammatory changes", "Findings compatible with acute pancreatitis. No CT findings of pancreatic necrosis or secondary complications at present". He is given 2mg IV dilaudid, subequently 1mg IV dilaudid. Also given 1 liter NS IV and 4mg IV zofran. He has had previous [facility] ED visits for pancreatitis and has been admitted each time for pain control. There are no medical/surgical beds available at this time and thus care of patient turned over to oncoming ED physician (Dr. Almanza). Discharge Plan Discharge Prescriptions: No Action omeprazole magnesium 20 MG tablet,delayed release (DR/EC) 20 mg PO QDBREAKFAST 30 Days Qty: 30 0RF cyclobenzaprine 10 MG tablet 10 mg PO TID PRN (Reason: Spasms) Qty: 20 0RF hydrocodone-acetaminophen 5-325 mg Tablet 1 tab PO Q4HR PRN (Reason: Moderate Pain (Level 4-6)) Qty: 7 0RF ibuprofen 800 mg tablet 800 mg PO Q8H Qty: 14 0RF Print Language: Peruvian Stand Alone Forms: PCP List
--- OUTSIDE RECORDS SUMMARY | 2024-07-27 04:47 | EXTERNAL MEDICAL SUMMARY RPT | Continuity of Care Document ---
Author Organization [place] Address [address] [place] [id number] Phone Problems date description facility 2024-04-30 09:50 Alcohol use, unspecified, uncom plicated [facility] 2024-04-30 09:50 Crohn's disease, unspecified, w ithout complications [facility] 2024-04-30 09:50 Acute pancreatitis w ithout necrosis or infection, unspecified [facility] 2024-04-30 09:50 Other specified abnormal findin gs of blood chemistry [facility] 2024-04-30 09:50 Tobacco use [facility] 2024-05-01 15:32 Alcohol use, unspecified, uncom plicated [facility] 2024-05-01 15:32 Crohn's disease, unspecified, w ithout complications [facility] 2024-05-01 15:32 Acute pancreatitis w ithout necrosis or infection, unspecified [facility] 2024-05-01 15:32 Other specified abnormal findin gs of blood chemistry [facility] 2024-05-01 15:32 Tobacco use [facility] 2024-05-01 15:37 Alcohol use, unspecified, uncom plicated [facility] 2024-05-01 15:37 Crohn's disease, unspecified, w ithout complications [facility] 2024-05-01 15:37 Acute pancreatitis w ithout necrosis or infection, unspecified [facility] 2024-05-01 15:37 Other specified abnormal findin gs of blood chemistry [facility] 2024-05-01 15:37 Tobacco use [facility] 2024-05-01 15:42 Alcohol use, unspecified, uncom plicated [facility] 2024-05-01 15:42 Crohn's disease, unspecified, w ithout complications [facility] 2024-05-01 15:42 Acute pancreatitis w ithout necrosis or infection, unspecified [facility] 2024-05-01 15:42 Other specified abnormal findin gs of blood [facility]24-05-01 15:47 Alcohol use, unspecified, uncom plicated [facility] 2024-05-01 15:47 Crohn's disease, unspecified, w ithout complications [facility]24-[facility] 15:47 Acute pancreatitis w ithout necrosis or infection, unspecified [facility] 15:47 Other specified abnormal findin gs of blood chemistry [facility] 15:47 [facility] 2024-05-01 19:22 Alcohol use, unspecified, uncom plicated [facility] 2024-05-01 19:22 Crohn's disease, unspecified, w ithout complications [facility] 19:22 Acute pancreatitis w ithout necrosis or infection, unspecified [facility] 2024-05-01 19:22 Other specified abnormal findin gs of blood chemistry [facility] 19:22 Tobacco use [facility] 2024-05-04 13:10 Alcohol use, unspecified, uncom plicated [facility] 2024-05-04 13:10 Crohn's disease, unspecified, w ithout complications [facility] 2024-05-04 13:10 Acute pancreatitis w ithout necrosis or infection, unspecified [facility] 2024-05-04 13:10 Chest pain, unspecified [facility] 2024-05-04 13:10 Epigastric pain [facility] 2024-05-04 13:10 Nausea with vomiting, unspecifi ed [facility] 2024-05-04 13:10 Other specified abnormal findin gs of blood chemistry [facility] 13:10 Tobacco use [facility] Results/Labs test date facility value unit notes Result panel 1 ETOH - ETHANOL 2024-04-29 06:22 [facility] < 10.0 mg/dl Blood Alcohol Levels Level Sporadic Drinkers Chronic drinkers 100 mg/dL Legally intoxicated* Minimal signs 200-250 mg/dL Alertness lost, Effort needed to becoming lethargic maintain emotional and motor control 300-350 mg/dL Stupor to coma Drowsy and slow >500 mg/dL Possible Coma *The legal definition of intoxication varies. This assy is for medical decision making only. As of September 2022 testing method has changed, this may include reference ranges. NUCLEATED RED BLOOD CELLS AUTO 2024-04-29 06:22 [facility] 0.0 /100wbc (missing) BASOPHILS # (AUTO) 2024-04-29 06:22 [facility] 0.0 10 3/ul (missing) NRBC ABSOLUTE COUNT (AUTO) 2024-04-29 06:22 [facility] 0.00 x10 3/ul (missing) EOSINOPHILS # (AUTO) 2024-04-29 06:22 [facility] 0.3 10 3/ul (missing) BILIRUBIN,TOTAL 2024-04-29 06:22 [facility] 0.4 mg/dl As of September 2022 test ing method has changed, this may include reference ranges. MONOCYTES # (AUTO) 2024-04-29 06:22 [facility] 0.7 10 3/ul (missing) CREATININE 2024-04-29 06:22 [facility] 0.9 mg/dl As of September 2022 test ing method has changed, this may include reference ranges. ALBUMIN/GLOBULIN RATIO 2024-04-29 06:22 [facility] 1.3 (missing) (missing) ANION GAP 2024-04-29 06:22 [facility] 10.0 (missing) (missing) WHITE BLOOD COUNT 2024-04-29 06:22 [facility] 10.0 x10 3/ul (missing) RED CELL DISTRIBUTION WIDTH 2024-04-29 06:22 [facility] 11.9 % (missing) BUN - BLOOD UREA NITROGEN 2024-04-29 06:22 [facility] 12 mg/dl As of September 2022 test ing method has changed, this may include reference ranges. SODIUM 2024-04-29 06:22 [facility] 136 mmol/l As of September 2022 test ing method has changed, this may include reference ranges. ALKALINE PHOSPHATASE 2024-04-29 06:22 [facility] 141 iu/l As of September 2022 test ing method has changed, this may include reference ranges. GLUCOSE 2024-04-29 06:22 [facility] 146 mg/dl As of September 2022 test ing method has changed, this may include reference ranges. HGB - HEMOGLOBIN 2024-04-29 06:22 [facility] 16.0 g/dl (missing) LYMPHOCYTES # (AUTO) 2024-04-29 06:22 [facility] 2.0 10 3/ul (missing) MAGNESIUM 2024-04-29 06:22 [facility] 2.0 mg/dl As of September 2022 test ing method has changed, this may include reference ranges. CARBON DIOXIDE - CO2 2024-04-29 06:22 [facility] 29 mmol/l As of September 2022 test ing method has changed, this may include reference ranges. GLOBULIN 2024-04-29 06:22 [facility] 3.4 g/dl (missing) POTASSIUM 2024-04-29 06:22 [facility] 3.9 mmol/l As of September 2022 test ing method has changed, this may include reference ranges. PLT - PLATELET COUNT 2024-04-29 06:22 [facility] 319 10 3/ul (missing) MEAN CORPUSCULAR HEMOGLOBIN 2024-04-29 06:22 [facility] 33.0 pg (missing) MEAN CORPUSCULAR HGB CONC 2024-04-29 06:22 [facility] 35.2 g/dl (missing) ALBUMIN 2024-04-29 06:22 [facility] 4.4 g/dl As of September 2022 test ing method has changed, this may include reference ranges. RED BLOOD COUNT 2024-04-29 06:22 [facility] 4.85 10 6/ul (missing) HCT - HEMATOCRIT 2024-04-29 06:22 [facility] 45.4 % (missing) AST ASPARTATE AMINOTRANSFERASE 2024-04-29 06:22 [facility] 64 iu/l As of September 2022 test ing method has changed, this may include reference ranges. NEUTROPHILS # (AUTO) 2024-04-29 06:22 [facility] 7.0 10 3/ul (missing) TOTAL PROTEIN 2024-04-29 06:22 [facility] 7.8 g/dl As of September 2022 test ing method has changed, this may include reference ranges. LIPASE 2024-04-29 06:22 [facility] 76 u/l As of September 2022 test ing method has changed, this may include reference ranges. MEAN PLATELET VOLUME 2024-04-29 06:22 [facility] 9.4 fl (missing) CALCIUM 2024-04-29 06:22 [facility] 9.9 mg/dl As of September 2022 test ing method has changed, this may include reference ranges. MEAN CORPUSCULAR VOLUME 2024-04-29 06:22 [facility] 93.6 fl (missing) ALT ALANINE AMINOTRANSFERASE 2024-04-29 06:22 [facility] 95 iu/l As of September 2022 test ing method has changed, this may include reference ranges. GFR - MDRD 2024-04-29 06:22 [facility] 97 (missing) Social History date description facility
[2024-07-27] MEDS: ONDANSETRON 4 MG/2 ML VIAL IVP STA (05:04)
[2024-07-27] MEDS: HYDROmorphone 1 MG/ML SYRINGE IVP STA ×2 (05:05→06:28)
[2024-07-27] MEDS: SODIUM CHLORIDE 0.9% 1,000 ML IV STA (05:06)
[2024-07-27 05:09] LABS: BASOPHILS % (AUTO) 0.3 %; EOSINOPHILS # (AUTO) 0.3 10^3/uL (0.0-0.7); HCT - HEMATOCRIT 48.5 % (42.0-52.0); HGB - HEMOGLOBIN 16.8 g/dL (14.0-18.0); LYMPHOCYTES # (AUTO) 2.8 10^3/uL (1.5-3.5); LYMPHOCYTES % (AUTO) 21.7 %; MEAN CORPUSCULAR HEMOGLOBIN 32.5 pg (27.0-31.0); MEAN CORPUSCULAR HGB CONC 34.6 g/dL (32.0-36.0); MEAN CORPUSCULAR VOLUME 93.8 fL (80.0-94.0); MONOCYTES # (AUTO) 0.8 10^3/uL (0.0-1.0); MONOCYTES % (AUTO) 6.2 %; NEUTROPHILS # (AUTO) 8.8 10^3/uL (1.5-6.6); NEUTROPHILS % (AUTO) 69.6 %; PLT - PLATELET COUNT 335 10^3/uL (130-450); RED BLOOD COUNT 5.17 10^6/uL (4.70-6.10); RED CELL DISTRIBUTION WIDTH 12.1 % (12.0-15.0); WHITE BLOOD COUNT 12.7 x10^3/uL (4.8-10.8)
[2024-07-27 05:28] LABS: ALBUMIN 4.9 g/dL (3.2-5.5); ALBUMIN/GLOBULIN RATIO 1.4 (1.0-2.2); BILIRUBIN,TOTAL 0.8 mg/dL (0.2-1.0); CALCIUM 10.7 mg/dL (8.5-10.3); CREATININE 0.9 mg/dL (0.6-1.3); POTASSIUM 4.6 mmol/L (3.5-4.5); TOTAL PROTEIN 8.4 g/dL (6.4-8.9)
[2024-07-27] MEDS ORDERED: iohexoL-300 100 ML VIAL ONE (05:32)
[2024-07-27] MEDS: iohexoL-300 100 ML VIAL IVP ONE (05:59)
[2024-07-27] MEDS: MORPHINE 10 MG/ML VIAL IVP STA (08:16)
--- NOTE | 2024-07-27 08:27 | CT Report ---
PROCEDURE: CT Abdomen/Pelvis W INDICATIONS: abd. Pain CONTRAST: 100cc [id number] TECHNIQUE: After the administration of intravenous contrast, a CT scan of the abdomen and pelvis was performed. Images were recorded and evaluated at appropriate window settings. Reformats: coronal and sagittal. For radiation dose reduction, the following was used: automated exposure control, adjustment of mA and/or kV according to patient size. COMPARISON: CT abdomen and pelvis 04/29/2024, 07/23/2023 FINDINGS: Image quality: Diagnostic. Lower chest: Unremarkable. Liver: No solid mass. Gallbladder: No radiopaque stones or wall thickening. Biliary tree: No intrahepatic or extrahepatic dilation. Spleen: No splenomegaly. Pancreas: No pancreatic ductal dilation. Appears atrophic. There is stranding most pronounced about the pancreatic head, (4/38). No convincing loculated fluid collection or pancreatic necrosis at this time. Adrenals: No adrenal nodule. Kidneys and ureters: No hydronephrosis. No renal cystic lesion which requires follow up. No solid mass. Stomach, bowel and peritoneum: No gastric or small bowel dilation. No pathologic free fluid. Renal appendix. No pneumoperitoneum. Lymph nodes: No central or retroperitoneal adenopathy. Vessels: No infrarenal aortic aneurysm. Patent portal vein. Mesenteric arteries are patent. No pseudoaneurysm. PELVIS Reproductive organs: Unremarkable. Bladder: No abnormal wall thickening. Pelvic lymph nodes: No pelvic adenopathy by size criteria. Bones: No aggressive osseous abnormality. Other: No significant ventral or inguinal hernia. IMPRESSION: Acute interstitial edematous pancreatitis. No loculated fluid collection or necrosis at this time. This report is concordant with the overnight preliminary interpretation. Reviewed by: Mario Jin MD on 07/27/2024 8:26 AM PDT Approved by: Mario Jin MD on 07/27/2024 8:26 AM PDT Station ID: [id number]
--- NOTE | 2024-07-27 10:16 | ED Physician Documentation ---
ED Addendum Addendum Addendum: Patient was signed out to me at change of shift, pending reevaluation after presenting with upper abdominal pain starting last night and nausea and vomiting. Patient has a history of recurrent alcoholic pancreatitis and is a daily drinker. He was found to have a mildly elevated lipase at [address] scan showed an edematous inflamed appearing pancreas. He had already been treated with 2 doses of Dilaudid at the time of signout and was complaining again of 8 out of 10 abdominal pain. He was then given morphine 10 mg IV. The patient was more comfortable for a while but again complained of being starting to get really bad again and at this point I felt he should be admitted to the hospital. I spoke with Dr. Olvera who is on-call for hospitalist service and he did agree to accept the patient for admission. The patient is aware of the plan and is agreeable to staying. Final impression: 1. Alcoholic pancreatitis Disposition: Admit to medicine service in serious condition. Discharge Plan Discharge Prescriptions: No Action omeprazole magnesium 20 MG tablet,delayed release (DR/EC) 20 mg PO QDBREAKFAST 30 Days Qty: 30 0RF cyclobenzaprine 10 MG tablet 10 mg PO TID PRN (Reason: Spasms) Qty: 20 0RF hydrocodone-acetaminophen 5-325 mg Tablet 1 tab PO Q4HR PRN (Reason: Moderate Pain (Level 4-6)) Qty: 7 0RF ibuprofen 800 mg tablet 800 mg PO Q8H Qty: 14 0RF Print Language: Serbian Stand Alone Forms: PCP List
[2024-07-27] MEDS ORDERED: HYDROmorphone 1 MG/ML SYRINGE ONE (10:34)
[2024-07-27] MEDS: HYDROmorphone 1 MG/ML CARPUJECT IVP PRN (10:52)
[2024-07-27 11:02] LABS: BILIRUBIN,URINE NEGATIVE (NEGATIVE); GLUCOSE, URINE (UA) >=1000 mg/dL (NEGATIVE); KETONES,URINE (UA) 40 mg/dL (NEGATIVE); LEUKOCYTE ESTERASE, URINE NEGATIVE (NEGATIVE); NITRITE,URINE NEGATIVE (NEGATIVE); OCCULT BLOOD,URINE NEGATIVE (NEGATIVE); PH,URINE 6.5 PH (5.0-7.5); PROTEIN,URINE NEGATIVE (NEGATIVE); UROBILINOGEN,URINE 0.2 (NORMAL) E.U./dL (NORMAL)
[2024-07-27 11:05] LABS: CLARITY,URINE CLEAR (CLEAR)
[2024-07-27] MEDS ORDERED: CYCLOBENZAPRINE 10 MG TABLET PO PRN (11:37)
[2024-07-27] MEDS: ONDANSETRON 4 MG/2 ML VIAL IVP PRN (12:00)
[2024-07-27] MEDS: SODIUM CHLORIDE 0.9% 1,000 ML IV SCH (12:03)
--- NOTE | 2024-07-27 13:43 | HISTORY & PHYSICAL EXAMINATION ---
Chief Complaint Chief Complaint Chief Complaint: Abdominal pain History of Present Illness Admitted From Admitted From:: Emergency department History Obtained From History obtained from: Patient and ED attending Exam Limitations: None History of Present Illness HPI Comment/Other: Patient is a 33-year-old man with a known PMH of alcoholism, and recurrent alcoholic pancreatitis who presents to the ED with a chief complaint of mid epigastric and left upper quadrant abdominal pain for approximately 36 hours. Patient states his symptoms started several hours after his last alcoholic drink which was at about noon yesterday. He states this pain has been sharp, severe in nature, and exacerbated by any p.o. intake. It is also associated with nausea and vomiting but without hematemesis. He states it is similar to prior episodes of acute pancreatitis. He presented to the ER overnight, and received IV fluids, and multiple rounds of pain medication without success in controlling his pain. His labs were relatively reassuring with a minimal lipase elevation of108. Mildly elevated LFTs consistent with previous labs, and a WBC of 12. CT abdomen pelvis shows uncomplicated acute pancreatitis without necrosis or abscess. Given his inability to achieve pain control without IV medications in the ED, admission was requested. Meds/Allgy Home Medications Ambulatory Orders Medication Instructions Recorded Confirmed omeprazole magnesium 20 mg 20 mg PO QDBREAKFAST 30 day s #30 12/15/22 07/27/24 tablet,delayed release tabs cyclobenzaprine 10 mg tablet 10 mg PO TID PRN Spasms # 20 tabs 11/20/23 07/27/24 hydrocodone 5 mg-acetaminophen 325 1 tab PO Q4HR PRN M oderate Pain 05/01/24 07/27/24 mg tablet (Level 4-6) #7 tabs ibuprofen 800 mg tablet 800 mg PO Q8H #14 tabs 05/0107/27/24 Allergies Allergies Allergy/AdvReac Type Severity Reaction Status Date / Time No Known Drug Allergies Allergy Verified 07/27/24 04:44 PFSH Active Problems All Active Problems (Updated 07/27/24 @ 14:17 by Ronnell Olvera MD) Pancreatitis, alcoholic, acute (Acute) Tobacco use (Acute) Alcohol use (Acute) Elevated LFTs (Acute) Medical History Medical History (Updated 07/27/24 @ 14:17 by Ronnell Olvera MD) Chronic pain Pancreatitis Acute Crohn's disease Surgical History Surgical History Hx of tonsillectomy Social History Social History Smoking Status: Current every day smoker Number of Years Smoked: 12 How many cigarettes a day do you smoke? (20 cigarettes=1 Pk): 20 Second hand tobacco smoke exposure: No Do you dip or chew tobacco?: No Do you vape?: No Patient requests smoking cessation consult: No Initiate information on smoking cessation: No Living arrangement: At home Living Condition: With spouse/s.o. Relationship: Level: Independent Do you feel safe in your home environment?: Yes Suffered physical, verbal, emotional, or financial abuse?: No History of Abuse: No Frequency: Daily ETOH Use Details: pt states he drinks a few times a week, however is attempting to quite drinking due to pancreatitis. Substance Use: cannabis (any form) Are you sexually active?: Yes POLST Patient has POLST: No POLST Status: Full Code Review of Systems Status of ROS: 10 or more systems reviewed and unremarkable except as noted in history and below Exam Exam Vital Signs: Vital Signs x48h Temp Pulse Pulse Resp BP BP Pulse Ox 07/27/24 11:51 44 L 159/97 H 07/27/24 11:51 36.2 C L 44 L 18 159/97 H 95 07/27/24 11:38 50 L 15 137/76 H 96 07/27/24 11:00 58 L 14 127/82 98 07/27/24 10:00 47 L 14 157/82 H 97 07/27/24 09:00 49 L 14 133/77 H 96 07/27/24 08:00 75 14 157/85 H 95 07/27/24 07:00 89 14 158/92 H 96 07/27/24 06:42 52 L 16 138/92 H 98 07/27/24 06:32 52 L 18 154/95 H 98 07/27/24 06:14 48 L 20 165/85 H 100 07/27/24 06:00 50 L 22 163/104 H 100 07/27/24 06:00 56 L 98 07/27/24 05:44 69 98 O2 Flow Rate 07/27/24 11:51 07/27/24 11:51 07/27/24 11:38 07/27/24 11:00 07/27/24 10:00 07/27/24 09:00 07/27/24 08:00 07/27/24 07:00 07/27/24 06:42 2 07/27/24 06:32 2 07/27/24 06:14 2 07/27/24 06:00 2 07/27/24 06:00 07/27/24 05:44 Constitutional normal general appearance, distress noted (obvious severe painful distress) (severe) and alert Respiratory breath sounds equal bilaterally and clear to auscultation bilaterally Cardiovascular heart rate abnormal (tachycardic) and regular rhythm noted Gastrointestinal abdomen soft to palpation, tender to palpation (moderate), nondistended and normoactive bowel sounds TTP across upper abdomen, greatest in epigastrium with voluntary guarding but no rebound Psychiatry oriented x3 and cooperative Skin skin color normal Conclusion/Plan Problem List (1) Pancreatitis, alcoholic, acute: Plan: * Patient with mildly elevated lipase, edematous pancreas, and WBC of 12 * Likely suggestive of uncomplicated acute pancreatitis * Consistent with patient's history of alcohol related pancreatitis * Place patient in observation * Keep on clear liquid diet if tolerated * IV fluids * Pain medication with opiates, and Toradol, minimize opiates as much as possible * Attempt to wean pain meds tomorrow * Attempt to advance diet tomorrow if tolerated Qualifiers: Acute pancreatitis complication: no infection or necrosis Qualified Code(s): K85.20 - Alcohol induced acute pancreatitis without necrosis or infection (2) Alcohol use: Plan: * Patient counseled on importance of alcohol cessation * No current evidence of withdrawal * No significant history of alcohol withdrawal * Monitor for withdrawal and if necessary initiate CIWA protocol Lab Results Lab results reviewed: Yes 07/27/24 05:02 07/27/24 05:02 Diagnostic Imaging Results Diagnostic Imaging Results: positive Prelim report reviewed EKG Results EKG Interpreted Independently: Yes
--- NOTE | 2024-07-27 15:20 | PHARMACY PROGRESS NOTE ---
Best Possible Medication History Admit Date and Time: 07/27/24 [id number] Home Medications Medication Instructions Recorded Confirmed Type omeprazole magnesium 20 mg 20 mg PO QDBREAKFAST 30 day s #30 12/15/22 07/27/24 Rx tablet,delayed release tabs ibuprofen 800 mg tablet 800 mg PO Q8H #14 tabs 05/0107/27/24 Rx cyclobenzaprine 5 mg tablet 5 mg PO HS PRN muscle spas m 07/27/24 07/27/24 History Processed by: Pharmacy Medications reviewed in ED?: No Medication History completed: Yes Patient Interview: Completed Secondary Source(s): Insurance records [facility] Statement: As the person ultimately responsible for medication therapy, providers are able to order a medication from an existing home medication list in [facility] via the "Reconcile Routine" prior to Confirmation of that medication by field support rep. Such practice is discouraged except when the physician, in their clinical judgment, deems that a medical need exists for a medication without regard to previous use.
[2024-07-27] MEDS: SODIUM CHLORIDE FLUSH 0.9% 10 ML SYRINGE IVP SCH (16:48)
[2024-07-27] MEDS: LORazepam 2 MG/ML VIAL IVP PRN (17:54)
[2024-07-27] MEDS: MULTIVITAMIN 10 ML, THIAMINE INJ 100 MG, FOLIC ACID INJ 1 MG in SODIUM CHLORIDE 0.9% 1,... IV ONE (18:18)
[2024-07-27 18:21] LABS: ALBUMIN 4.4 g/dL (3.2-5.5); ALBUMIN/GLOBULIN RATIO 1.3 (1.0-2.2); BILIRUBIN,TOTAL 0.8 mg/dL (0.2-1.0); CALCIUM 9.3 mg/dL (8.5-10.3); CREATININE 0.6 mg/dL (0.6-1.3); POTASSIUM 4.2 mmol/L (3.5-4.5); TOTAL PROTEIN 7.7 g/dL (6.4-8.9)
[2024-07-28] MEDS: oxyCODONE 5 MG TABLET PO PRN (05:42)
[2024-07-28] MEDS: PANTOPRAZOLE 40 MG TABLET PO SCH (06:03)
[2024-07-28] MEDS: NICOTINE 21 MG PATCH TOP SCH (08:43)
[2024-07-28] MEDS: KETOROLAC 15 MG/ML VIAL IVP PRN (08:45)
--- NOTE | 2024-07-28 09:06 | PROVIDER PROGRESS NOTE ---
Assessment/Plan Problem List (1) Pancreatitis, alcoholic, acute: Qualifiers: Acute pancreatitis complication: no infection or necrosis Qualified Code(s): K85.20 - Alcohol induced acute pancreatitis without necrosis or infection Assessment/Plan: * Patient reports no significant improvement * Will continue IV fluids, encourage p.o. caloric with diet * Continue to attempt minimizing narcotics, encouraging use of Toradol prior to opiate use * Advance diet as tolerated * Anticipate 1-2 more days (2) Alcohol use: Assessment/Plan: * Per nursing patient developed withdrawal symptoms yesterday with a max CIWA score of 12 * CIWA protocol initiated * No current evidence of withdrawal on today's morning exam (3) Hyperglycemia: Assessment/Plan: * Blood sugar 338 yesterday * 234 this morning * No prior history of diabetes * Will add A1c to labs Current Meds Current Meds: Current Medications Generic Name Dose Route Start Last Admin Trade Name Freq PRN Reason Stop Dose Admin Acetaminophen 650 mg 07/27/24 11:10 Acetaminophen 325 Mg Tablet PO Q4HR PRN Pain 1 to 4, or Fever Cyclobenzaprine HCl 10 mg 07/27/24 11:37 Cyclobenzaprine 10 Mg Tablet PO TID PRN Spasms Hydromorphone HCl 1 mg 07/27/24 10:13 07/28/24 06:29 Hydromorphone 1 Mg/Ml Carpuject IVP 1 mg Q2HR PRN Administration Severe Pain (Level 7-10) Sodium Chloride 1,000 mls @ 150 mls/hr 07/27/24 12:00 07/28/24 06:05 Normal Saline 0.9% IV 150 mls/hr .Q6H40M SAMANTHA Administration Ketorolac Tromethamine 15 mg 07/27/24 13:58 07/28/24 08:45 Ketorolac 15 Mg/Ml Vial IVP 08/01/24 13:57 15 mg Q6HR PRN Administration Moderate Pain (Level 4-6) Lorazepam 2 mg 07/27/24 17:32 07/27/24 17:54 Lorazepam 2 Mg/Ml Vial IVP 2 mg Q30M PRN Administration CIWA >8 Protocol Morphine Sulfate 2 mg 07/27/24 11:10 Morphine 2 Mg/Ml Carpuject IVP Q2HR PRN Pain 8 to 10 Nicotine 1 patch 07/28/24 09:00 07/28/24 08:43 Nicotine 21 Mg Patch TOP 1 patch DAILY SAMANTHA Administration Ondansetron HCl 4 mg 07/27/24 11:10 07/28/24 08:43 Ondansetron 4 Mg/2 Ml Vial IVP 4 mg Q6HR PRN Administration Nausea / Vomiting Oxycodone HCl 5 mg 07/27/24 11:10 07/28/24 05:42 Oxycodone 5 Mg Tablet PO 5 mg Q4HR PRN Administration Pain 5 to 7 Pantoprazole Sodium 40 mg 07/28/24 07:00 07/28/24 06:03 Pantoprazole 40 Mg Tablet PO 40 mg QDAC SAMANTHA Administration Sodium Chloride 10 ml 07/27/24 11:10 Sodium Chloride Flush 0.9% 10 Ml Syringe IVP PRN PRN NEEDED PER PROVIDER ORDERS Sodium Chloride 10 ml 07/27/24 17:00 07/28/24 08:45 Sodium Chloride Flush 0.9% 10 Ml Syringe IVP 10 ml 0100,0900,1700 SAMANTHA Administration Lab Result Lab results reviewed: Yes 07/27/24 05:02 07/27/24 17:53 Diagnostic Imaging Results Diagnostic Imaging Results: Final report reviewed Additional Planning My Orders: My Active Orders 07/27/24 11:10 Code Status Routine Acetaminophen [Tylenol] 650 mg PO Q4HR PRN Morphine Inj (Carpuject) [Morphine (Carpuject)] 2 mg IVP Q2HR PRN Ondansetron Inj [Zofran Inj] 4 mg IVP Q6HR PRN Sodium Chloride Flush 0.9% [Normal Saline Flush 0.9%] 10 ml IVP PRN PRN oxyCODONE [Roxicodone] 5 mg PO Q4HR PRN 07/27/24 11:11 Activity Orders [RC] Q2HR IO [RC] IOSHIFT Initiate Bowel Care Protocol [RC] .protocol Initiate Line Care Protocol [RC] QSHIFT Initiate Personal Care Protoco [RC] .protocol Oxygen Therapy [RC] .PRN Condition of Patient [OTHERS] Routine DVT Prophylaxis [OTHERS] Routine 07/27/24 11:12 SCDs [RC] QSHIFT 07/27/24 Lunch Clear Liquid Diet [DIET] 07/27/24 11:37 Cyclobenzaprine [Flexeril] 10 mg PO TID PRN 07/27/24 12:00 Sodium Chloride 0.9% [Normal Saline 0.9%] 1,000 ml IV 150 mls/hr 07/27/24 13:58 Ketorolac Inj (15Mg) [Toradol Inj (15Mg)] 15 mg IVP Q6HR PRN 07/27/24 17:00 Sodium Chloride Flush 0.9% [Normal Saline Flush 0.9%] 10 ml IVP 0100,0900,1700 07/27/24 17:32 CIWA - AR Score Card [RC] Q4HR LORazepam INJ [Ativan Inj (Vial)] 2 mg IVP Q30M PRN 07/28/24 07:00 Pantoprazole [Protonix] 40 mg PO QDAC 07/28/24 09:00 Nicotine 21 mg Patch [Nicoderm] 1 patch TOP DAILY Subjective Subjective Patient Reports: Abdominal Pain and Nausea Objective Vital Signs: Vital Signs - 24 hr 07/27/24 10:00 07/27/24 10:52 07/27/24 11:00 Temperature Temperature Source Pulse Rate 47 L 58 L Pulse Rate [Brachial] Pulse Rate [Monitoring electrodes] Respiratory Rate 14 14 Blood Pressure 157/82 H 127/82 Blood Pressure [Right Brachial artery] O2 Saturation 97 98 O2 Source Room air Room air Sedation scale Pain Intensity 8 10 4 Pain Intensity [Abdomen] 07/27/24 11:38 07/27/24 11:47 07/27/24 11:51 Temperature 36.2 C L Temperature Source Skin Pulse Rate 50 L Pulse Rate [Brachial] Pulse Rate [Monitoring electrodes] 44 L Respiratory Rate 15 18 Blood Pressure 137/76 H Blood Pressure [Right Brachial artery] 159/97 H O2 Saturation 96 95 O2 Source Room air Room air Sedation scale 0-Fully awake Pain Intensity 5 5 5 Pain Intensity [Abdomen] 07/27/24 11:51 07/27/24 12:05 07/27/24 14:11 Temperature Temperature Source Pulse Rate Pulse Rate [Brachial] Pulse Rate [Monitoring electrodes] 44 L Respiratory Rate Blood Pressure Blood Pressure [Right Brachial artery] 159/97 H O2 Saturation O2 Source Sedation scale 0-Fully awake Pain Intensity 9 Pain Intensity [Abdomen] 5 07/27/24 16:00 07/27/24 16:43 07/27/24 16:48 Temperature 36.8 C Temperature Source Temporal Artery Scan Pulse Rate Pulse Rate [Brachial] Pulse Rate [Monitoring electrodes] 66 Respiratory Rate 18 Blood Pressure Blood Pressure [Right Brachial artery] 160/97 H O2 Saturation 99 O2 Source Room air Sedation scale 0-Fully awake Pain Intensity 7 9 Pain Intensity [Abdomen] 9 07/27/24 17:57 07/27/24 20:57 07/27/24 22:25 Temperature 36.6 C Temperature Source Temporal Artery Scan Pulse Rate Pulse Rate [Brachial] Pulse Rate [Monitoring electrodes] 60 Respiratory Rate 18 Blood Pressure Blood Pressure [Right Brachial artery] 159/98 H O2 Saturation 96 O2 Source Room air Sedation scale 1-Arouses easily Pain Intensity 6 0 7 Pain Intensity [Abdomen] 07/27/24 23:41 07/28/24 02:40 07/28/24 03:55 Temperature 36.4 C L Temperature Source Temporal Artery Scan Pulse Rate Pulse Rate [Brachial] 63 Pulse Rate [Monitoring electrodes] Respiratory Rate 16 Blood Pressure Blood Pressure [Right Brachial artery] 149/92 H O2 Saturation 96 O2 Source Room air Sedation scale 1-Arouses easily Pain Intensity 8 0 Pain Intensity [Abdomen] 07/28/24 04:21 07/28/24 05:42 07/28/24 06:29 Temperature 36.7 C Temperature Source Temporal Artery Scan Pulse Rate Pulse Rate [Brachial] 53 L Pulse Rate [Monitoring electrodes] Respiratory Rate 16 Blood Pressure Blood Pressure [Right Brachial artery] 160/84 H O2 Saturation 98 O2 Source Room air Sedation scale 0-Fully awake Pain Intensity 7 8 Pain Intensity [Abdomen] 07/28/24 06:31 07/28/24 07:15 07/28/24 07:22 Temperature 36.4 C L Temperature Source Temporal Artery Scan Pulse Rate Pulse Rate [Brachial] 59 L Pulse Rate [Monitoring electrodes] Respiratory Rate 18 Blood Pressure Blood Pressure [Right Brachial artery] 149/79 H O2 Saturation 97 O2 Source Room air Sedation scale 1-Arouses easily Pain Intensity 8 0 Pain Intensity [Abdomen] 07/28/24 08:00 07/28/24 08:45 Temperature Temperature Source Pulse Rate Pulse Rate [Brachial] Pulse Rate [Monitoring electrodes] Respiratory Rate Blood Pressure Blood Pressure [Right Brachial artery] O2 Saturation O2 Source Sedation scale Pain Intensity 6 Pain Intensity [Abdomen] 6 Oxygen O2 Source Room air I&O (Last 24 Hrs): Intake and Output Totals x24h 07/26/24 07/27/24 07/28/24 23:59 23:59 23:59 Intake Total 2865 / 2865 1076.2 / 1076.2 Output Total 800 / 800 Balance 2064 / 2064 1076.2 / 1076.2 General: Alert, Oriented x3 and No acute distress HEENT: Atraumatic and EOMI Neuro: Alert, Non Focal and CN 2-12 Grossly Intact Cardiovascular: Regular rate, Normal S1, Normal S2 and No murmurs Respiratory: No respiratory distress and Breath sounds nml Abdomen: Normal bowel sounds, Soft, No masses and Other (TTP upper abdomen, L worse than right) Extremities: No clubbing, No cyanosis and No edema Results Results: Laboratory Results WBC 12.7 x10^3/uL (4.8-10.8) H 07/27/24 05:02 RBC 5.17 10^6/uL (4.70-6.10) 07/27/24 05:02 Hgb 16.8 g/dL (14.0-18.0) 07/27/24 05:02 Hct 48.5 % (42.0-52.0) 07/27/24 05:02 MCV 93.8 fL (80.0-94.0) 07/27/24 05:02 MCH 32.5 pg (27.0-31.0) H 07/27/24 05:02 MCHC 34.6 g/dL (32.0-36.0) 07/27/24 05:02 RDW 12.1 % (12.0-15.0) 07/27/24 05:02 Plt Count 335 10^3/uL (130-450) 07/27/24 05:02 MPV 10.0 fL (7.4-11.4) 07/27/24 05:02 Neut # (Auto) 8.8 10^3/uL (1.5-6.6) H 07/27/24 05:02 Lymph # (Auto) 2.8 10^3/uL (1.5-3.5) 07/27/24 05:02 [place] # (Auto) 0.8 10^3/uL (0.0-1.0) 07/27/24 05:02 Eos # (Auto) 0.3 10^3/uL (0.0-0.7) 07/27/24 05:02 Baso # (Auto) 0.0 10^3/uL (0.0-0.1) 07/27/24 05:02 Absolute Nucleated RBC 0.00 x10^3/uL 07/27/24 05:02 Nucleated RBC % 0.0 /100WBC 07/27/24 05:02 Sodium 135 mmol/L (135-145) 07/27/24 17:53 Potassium 4.2 mmol/L (3.5-4.5) 07/27/24 17:53 Chloride 97 mmol/L (101-111) L 07/27/24 17:53 Carbon Dioxide 24 mmol/L (21-32) 07/27/24 17:53 Anion Gap 14.0 (6-13) H 07/27/24 17:53 BUN 11 mg/dL (6-20) 07/27/24 17:53 Creatinine 0.6 mg/dL (0.6-1.3) 07/27/24 17:53 Estimated GFR (MDRD) 155 (>89) 07/27/24 17:53 Glucose 234 mg/dL (74-104) H 07/27/24 17:53 Calcium 9.3 mg/dL (8.5-10.3) 07/27/24 17:53 Total Bilirubin 0.8 mg/dL (0.2-1.0) 07/27/24 17:53 AST 32 IU/L (10-42) 07/27/24 17:53 ALT 67 IU/L (10-60) H 07/27/24 17:53 Alkaline Phosphatase 138 IU/L (42-121) H 07/27/24 17:53 Total Protein 7.7 g/dL (6.4-8.9) 07/27/24 17:53 Albumin 4.4 g/dL (3.2-5.5) 07/27/24 17:53 Globulin 3.3 g/dL (2.1-4.2) 07/27/24 17:53 Albumin/Globulin Ratio 1.3 (1.0-2.2) 07/27/24 17:53 Lipase 108 U/L (11-82) H 07/27/24 05:02 Urine Color YELLOW 07/27/24 10:55 Urine Clarity CLEAR (CLEAR) 07/27/24 10:55 Urine pH 6.5 PH (5.0-7.5) 07/27/24 10:55 Ur Specific [place] 1.010 (1.002-1.030) 07/27/24 10:55 Urine Protein NEGATIVE mg/dL (NEGATIVE) 07/27/24 10:55 Urine Glucose (UA) >=1000 mg/dL (NEGATIVE) H 07/27/24 10:55 Urine Ketones 40 mg/dL (NEGATIVE) H 07/27/24 10:55 Urine Occult Blood NEGATIVE (NEGATIVE) 07/27/24 10:55 Urine Nitrite NEGATIVE (NEGATIVE) 07/27/24 10:55 Urine Bilirubin NEGATIVE (NEGATIVE) 07/27/24 10:55 Urine Urobilinogen 0.2 (NORMAL) E.U./dL (NORMAL) 07/27/24 10:55 Ur Leukocyte Esterase NEGATIVE (NEGATIVE) 07/27/24 10:55 Ur Microscopic Review NOT INDICATED 07/27/24 10:55 Urine Culture Comments NOT INDICATED 07/27/24 10:55 Current Medications Current Medications Current Medications: Current Medications Generic Name Dose Route Start Last Admin Trade Name Freq PRN Reason Stop Dose Admin Acetaminophen 650 mg 07/27/24 11:10 Acetaminophen 325 Mg Tablet PO Q4HR PRN Pain 1 to 4, or Fever Cyclobenzaprine HCl 10 mg 07/27/24 11:37 Cyclobenzaprine 10 Mg Tablet PO TID PRN Spasms Hydromorphone HCl 1 mg 07/27/24 10:13 07/28/24 06:29 Hydromorphone 1 Mg/Ml Carpuject IVP 1 mg Q2HR PRN Administration Severe Pain (Level 7-10) Sodium Chloride 1,000 mls @ 150 mls/hr 07/27/24 12:00 07/28/24 06:05 Normal Saline 0.9% IV 150 mls/hr .Q6H40M SAMANTHA Administration Ketorolac Tromethamine 15 mg 07/27/24 13:58 07/28/24 08:45 Ketorolac 15 Mg/Ml Vial IVP 08/01/24 13:57 15 mg Q6HR PRN Administration Moderate Pain (Level 4-6) Lorazepam 2 mg 07/27/24 17:32 07/27/24 17:54 Lorazepam 2 Mg/Ml Vial IVP 2 mg Q30M PRN Administration CIWA >8 Protocol Morphine Sulfate 2 mg 07/27/24 11:10 Morphine 2 Mg/Ml Carpuject IVP Q2HR PRN Pain 8 to 10 Nicotine 1 patch 07/28/24 09:00 07/28/24 08:43 Nicotine 21 Mg Patch TOP 1 patch DAILY SAMANTHA Administration Ondansetron HCl 4 mg 07/27/24 11:10 07/28/24 08:43 Ondansetron 4 Mg/2 Ml Vial IVP 4 mg Q6HR PRN Administration Nausea / Vomiting Oxycodone HCl 5 mg 07/27/24 11:10 07/28/24 05:42 Oxycodone 5 Mg Tablet PO 5 mg Q4HR PRN Administration Pain 5 to 7 Pantoprazole Sodium 40 mg 07/28/24 07:00 07/28/24 06:03 Pantoprazole 40 Mg Tablet PO 40 mg QDAC SAMANTHA Administration Sodium Chloride 10 ml 07/27/24 11:10 Sodium Chloride Flush 0.9% 10 Ml Syringe IVP PRN PRN NEEDED PER PROVIDER ORDERS Sodium Chloride 10 ml 07/27/24 17:00 07/28/24 08:45 Sodium Chloride Flush 0.9% 10 Ml Syringe IVP 10 ml 0100,0900,1700 SAMANTHA Administration
[2024-07-28 10:00] LABS: ESTIMATED AVERAGE GLUCOSE 226 mg/dL (70-100); HEMOGLOBIN A1c% 9.5 % (4.27-6.07)
[2024-07-28] MEDS: MORPHINE 2 MG/ML CARPUJECT IVP PRN (10:47)
[2024-07-28] MEDS: DOCUSATE SODIUM 250 MG CAPSULE PO SCH (13:09)
[2024-07-28] MEDS: polyethylene glycoL 3350 17 GM PACKET PO SCH (13:09)
[2024-07-28] MEDS: INSULIN REGULAR, HUMAN 300 UNIT/3 ML PEN SUBQ SCH (17:51)
[2024-07-28] MEDS: MELATONIN 3 MG TABLET PO SCH (22:14)
[2024-07-29] MEDS: SODIUM CHLORIDE 0.9% 1,000 ML IV SCH (02:13)
[2024-07-29] MEDS: SODIUM CHLORIDE FLUSH 0.9% 10 ML SYRINGE IVP PRN (02:43)
[2024-07-29] MEDS: ACETAMINOPHEN 325 MG TABLET PO PRN (02:53)
[2024-07-29 12:05] VITALS: BP 157/96; TEMP 98.1; O2SAT 98
--- NOTE | 2024-07-29 14:38 | Discharge Summary ---
"Discharge Summary Admit Date: 07/27/24 Discharge Date: 07/29/24 Discharging Provider: Dr Ronnell Olvera MD Primary Care Provider: Ania Barrett Code Status: Attempt Resuscitation DIAGNOSES Admission Diagnoses: Acute alcoholic pancreatitis Alcohol dependence Discharge Diagnoses with Status of Each Condition: Acute alcoholic pancreatitisimproved Alcohol dependenceimproved Type 2 diabetes new diagnosis HPI History of Present Illness: Patient is a 33-year-old man with a known PMH of alcoholism, and recurrent alcoholic pancreatitis who presents to the ED with a chief complaint of mid epigastric and left upper quadrant abdominal pain for approximately 36 hours. Patient states his symptoms started several hours after his last alcoholic drink which was at about noon yesterday. He states this pain has been sharp, severe in nature, and exacerbated by any p.o. intake. It is also associated with nausea and vomiting but without hematemesis. He states it is similar to prior episodes of acute pancreatitis. He presented to the ER overnight, and received IV fluids, and multiple rounds of pain medication without success in controlling his pain. His labs were relatively reassuring with a minimal lipase elevation of108. Mildly elevated LFTs consistent with previous labs, and a WBC of 12. CT abdomen pelvis shows uncomplicated acute pancreatitis without necrosis or abscess. Given his inability to achieve pain control without IV medications in the ED, admission was requested. CONSULTS | PROCEDURES Consultations: Diabetic Education/Nutrition Procedures: HOSPITAL COURSE Hospital Course: Patient was admitted to medical floor where he was treated for acute pancreatitis with restricted diet and IV fluids. He had gradual improvement in his abdominal pain. Initially he was requiring IV pain medications but on the day of discharge he was able to advance to a regular diet without the use of IV pain medications and was deemed to be medically stable to discharge home. Of note, the patient was hyperglycemic and a hemoglobin A1c was ordered demonstrating hemoglobin A1c of 9.5. Further blood sugar checks with insulin sliding scale confirmed persistence of hyperglycemia and he was informed of the new diagnosis of type 2 diabetes mellitus.He was discharged home on a prescription for metformin 5 mg twice daily and was also provided prescription for glucometer, test strips, and lancets. Because the patient was discharged during a [facility] downtime, this may not be reflected in the electronic log of medication administration. ALLERGIES Allergies Allergy/AdvReac Type Severity Reaction Status Date / Time No Known Drug Allergies Allergy Verified 07/27/24 04:44 MEDICATIONS Ambulatory Orders Medication Instructions Recorded Confirmed omeprazole magnesium 20 mg 20 mg PO QDBREAKFAST 30 day s #30 12/15/22 07/27/24 tablet,delayed release tabs ibuprofen 800 mg tablet 800 mg PO Q8H #14 tabs 05/0107/27/24 cyclobenzaprine 5 mg tablet 5 mg PO HS PRN muscle spas m 07/27/24 07/27/24 oxycodone 5 mg tablet 5 mg PO Q4HR PRN Pain 5 to 7 #14 07/29/24 tabs PHYSICAL EXAM AT DISCHARGE Vital Signs: Vital Signs x48h Temp Pulse Resp BP Pulse Ox 07/29/24 12:03 36.7 C 62 18 157/96 H 98 07/29/24 07:55 36.3 C L 84 20 148/103 H 99 General Appearance: positive No acute distress and Alert Respiratory: positive No respiratory distress and Breath sounds nml; negative Wheezes Cardiovascular: positive Regular rate & rhythm, No murmur and No gallop Abdomen: positive Non-tender, No organomegaly, Nml bowel sounds and No distention Skin: positive Color nml Extremities: positive Nml appearance Neurologic/Psychiatric: positive Oriented x3, CN's nml (2-12) and Motor nml LABS 07/27/24 05:02 07/27/24 17:53 DIAGNOSTIC IMAGING Diagnostic Imaging Results: Final report reviewed FOLLOW UP Follow Up: Follow-up with PCP soon as possible to discuss type 2 diabetes mellitus, and obtain support for alcohol cessation and further management of recurrent episodes of pancreatitis. TIME SPENT Time Spent in Discharge (Minutes): 42 Discharge Plan Discharge Patient Disposition: Home, Self Care Condition: Serious Medically Cleared Date:: 07/29/24 Prescriptions: New oxycodone 5 mg Tablet 5 mg PO Q4HR PRN (Reason: Pain 5 to 7) Qty: 14 0RF Continued omeprazole magnesium 20 MG tablet,delayed release (DR/EC) 20 mg PO QDBREAKFAST 30 Days Qty: 30 0RF ibuprofen 800 mg tablet 800 mg PO Q8H Qty: 14 0RF cyclobenzaprine 5 mg tablet 5 mg PO HS PRN (Reason: muscle spasm) Patient Comments: take 1 tablet by mouth nightly if needed for muscle spasm Diet: Diabetic Print Language: Swazi Patient Instructions: Diabetes Type 2 Stand Alone Forms: PCP List"
== END 2024-07-29 13:10 | disposition home or self-care (01) ==
LOC: MS2 04:30 → ED 04:30 → MS2 11:38
PROVIDERS: ADMIT Family Medicine Sports Medicine; ATTEND Family Medicine Sports Medicine
DX: R79.89 Other specified abnormal findings of blood chemistry; F10.20 Alcohol dependence, uncomplicated; E11.65 Type 2 diabetes mellitus with hyperglycemia; D72.829 Elevated white blood cell count, unspecified; K85.20 Alcohol induced acute pancreatitis without necrosis or infection; Z79.84 Long term (current) use of oral hypoglycemic drugs; F17.210 Nicotine dependence, cigarettes, uncomplicated